=== PATIENT | male | born 1955 | race Caucasian/White ===

== ENCOUNTER 2017-10-06 18:39 | Emergency (ER) | payer MEDICARE, MEDICAID ==
[~2017-10-06] VITALS: Ht 172.7 cm; Wt 124.2 kg
[~2017-10-06 18:39] MED LIST: ASPI-611 PO; CARV-50 PO; CLIN-79 PO; DOCU-20 PO; GLIP10TA11 PO; HYDR-3965 PO; LACT10SO PO; LOSA50TA3 PO; PETR3.5O7 OP; SPIR25TA3 PO
[2017-10-06 19:38] LABS: BASOPHILS % (AUTO) 0.4 % (0-1); EOSINOPHILS # (AUTO) 0.2 X10'3 (0-0.9); EOSINOPHILS % (AUTO) 2.8 % (0-6); HEMOGLOBIN 14.2 g/dl (14.0-17.9); LYMPHOCYTES # (AUTO) 1.7 X10'3 (1.1-4.8); LYMPHOCYTES % (AUTO) 22.4 % (21-51); MEAN CORPUSCULAR HEMOGLOBIN 36.1 PG (27.0-31.0); MEAN CORPUSCULAR HGB CONC 35.5 % (33.0-36.5); MEAN CORPUSCULAR VOLUME 101.8 FL (78-98); MEAN PLATELET VOLUME 7.9 FL (7.4-10.4); MONOCYTES # (AUTO) 0.7 X10'3 (0-0.9); MONOCYTES % (AUTO) 9.5 % (2-12); NEUTROPHILS # (AUTO) 4.8 X10'3 (1.8-7.7); NEUTROPHILS % (AUTO) 64.9 % (42-75); PLATELET COUNT 88 X10'3 (140-440); RED BLOOD COUNT 3.93 X10'6 (4.70-6.10); RED CELL DISTRIBUTION WIDTH 14.4 % (11.5-14.5); WHITE BLOOD COUNT 7.4 X10'3 (4.5-11.0)
[2017-10-06 19:50] LABS: INR 1.1 INR; PARTIAL THROMBOPLASTIN TIME 24 SECONDS (22-32); PROTHROMBIN TIME 10.9 SECONDS (9.0-12.0)
[2017-10-06 20:01] LABS: ALANINE AMINOTRANSFERASE 58 U/L (12-78); ALBUMIN 2.8 G/DL (3.4-5.0); ALBUMIN/GLOBULIN RATIO 0.6 (1.1-1.5); ALKALINE PHOSPHATASE 212 IU/L (46-116); ANION GAP 8 (8-16); ASPARTATE AMINO TRANSFERASE 57 U/L (10-37); BILIRUBIN,TOTAL 2.2 MG/DL (0.1-1.0); BLOOD UREA NITROGEN 21 MG/DL (7-18); BUN/CREATININE RATIO 14.1 (5.4-32.0); CALCIUM 8.6 MG/DL (8.5-10.1); CHLORIDE 101 MMOL/L (99-107); CREATININE 1.49 MG/DL (0.60-1.10); GLUCOSE 145 MG/DL (70-104); LIPASE 159 U/L (73-393); POTASSIUM 4.7 MMOL/L (3.5-5.1); SODIUM 135 MMOL/L (135-145); TOTAL CARBON DIOXIDE 26.3 MMOL/L (24-32); TOTAL PROTEIN 7.2 G/DL (6.4-8.2); eGFR 48 ML/MIN
[2017-10-06] MEDS ORDERED: furosemide 10 MG/1 ML 10ml inj IV ONE (20:10)
[2017-10-06 20:45] VITALS: BP 135/80
== END 2017-10-06 20:48 | disposition home or self-care (01) ==
LOC: ER 18:39
DX: K74.60 Unspecified cirrhosis of liver (principal); I25.10 Atherosclerotic heart disease of native coronary artery without angina pectoris; I10 Essential (primary) hypertension; I25.2 Old myocardial infarction; E11.9 Type 2 diabetes mellitus without complications; Z95.1 Presence of aortocoronary bypass graft; Z95.0 Presence of cardiac pacemaker; Z88.8 Allergy status to other drugs, medicaments and biological substances; Z79.82 Long term (current) use of aspirin
CPT/HCPCS: 36415; 71045; 80053; 83690; 83880; 84484; 85025; 85610; 85730; 96374; 99285; J1940

== ENCOUNTER 2017-10-28 16:53 | Inpatient (IN) | payer MEDICARE, MEDICAID ==
[2017-10-27 14:40] VITALS: BP 149/83
[~2017-10-28] VITALS: Ht 172.7 cm; Wt 130.0 kg
[2017-10-28 17:47] LABS: BASOPHILS # (AUTO) 0.1 X10'3 (0-0.2); BASOPHILS % (AUTO) 0.7 % (0-1); EOSINOPHILS # (AUTO) 0.3 X10'3 (0-0.9); EOSINOPHILS % (AUTO) 3.3 % (0-6); HEMOGLOBIN 13.9 g/dl (14.0-17.9); LYMPHOCYTES # (AUTO) 1.4 X10'3 (1.1-4.8); LYMPHOCYTES % (AUTO) 17.7 % (21-51); MEAN CORPUSCULAR HEMOGLOBIN 35.8 PG (27.0-31.0); MEAN CORPUSCULAR HGB CONC 34.8 % (33.0-36.5); MEAN CORPUSCULAR VOLUME 102.9 FL (78-98); MEAN PLATELET VOLUME 7.4 FL (7.4-10.4); MONOCYTES # (AUTO) 0.9 X10'3 (0-0.9); MONOCYTES % (AUTO) 11.8 % (2-12); NEUTROPHILS # (AUTO) 5.3 X10'3 (1.8-7.7); NEUTROPHILS % (AUTO) 66.5 % (42-75); PLATELET COUNT 124 X10'3 (140-440); RED BLOOD COUNT 3.89 X10'6 (4.70-6.10); RED CELL DISTRIBUTION WIDTH 14.8 % (11.5-14.5)
[2017-10-28 18:11] LABS: ALANINE AMINOTRANSFERASE 40 U/L (12-78); ALBUMIN 2.7 G/DL (3.4-5.0); ALBUMIN/GLOBULIN RATIO 0.6 (1.1-1.5); ALKALINE PHOSPHATASE 169 IU/L (46-116); ANION GAP 7 (8-16); ASPARTATE AMINO TRANSFERASE 55 U/L (10-37); BILIRUBIN,TOTAL 2.2 MG/DL (0.1-1.0); BLOOD UREA NITROGEN 35 MG/DL (7-18); BUN/CREATININE RATIO 8.1 (5.4-32.0); CALCIUM 8.8 MG/DL (8.5-10.1); CHLORIDE 101 MMOL/L (99-107); CREATININE 4.34 MG/DL (0.60-1.10); GLUCOSE 101 MG/DL (70-104); POTASSIUM 4.9 MMOL/L (3.5-5.1); SODIUM 134 MMOL/L (135-145); TOTAL CARBON DIOXIDE 26.2 MMOL/L (24-32); TOTAL PROTEIN 7.1 G/DL (6.4-8.2); eGFR 14 ML/MIN
[2017-10-28] MEDS ORDERED: OXYC5CAP19 PO (19:08)
[2017-10-28] MEDS ORDERED: METF500T PO (19:08)
[2017-10-28] MEDS ORDERED: TAMS0.4C32 PO (19:08)
[2017-10-28] MEDS ORDERED: LORA10TA7 PO (19:08)
[2017-10-28] MEDS ORDERED: SIMV20TA5 PO (19:08)
[2017-10-28] MEDS ORDERED: SITA100T11 PO (19:08)
[2017-10-28] MEDS ORDERED: acetaminophen 325mg tablet PO PRN (21:50)
[2017-10-28] MEDS ORDERED: ondansetron/PF 4mg/2ml inj IV PRN (21:50)
[2017-10-28] MEDS ORDERED: dextrose 50%-water 50ml dispensing syringe IV PRN ×2 (22:05)
[2017-10-28] MEDS ORDERED: MESSAGE TO PHARMACY PO ONE (22:05)
[2017-10-28] MEDS ORDERED: glucagon, human recombinant 1mg kit SUBCUT PRN (22:05)
[2017-10-28] MEDS ORDERED: dextrose ORAL solution 15 GM/59 ML bottle PO PRN ×2 (22:05)
[2017-10-28] MEDS ORDERED: insulin Lispro (HumaLOG) vial - multi-dose SQ SCH (22:05)
[2017-10-28] MEDS ORDERED: non-formulary drug (Oxycodone HCl 1 CAP) PO SCH (22:15)
[2017-10-28 22:46] LABS: HEMOGLOBIN A1C 6.1 % (4.5-6.2)
[2017-10-28 23:15] VITALS: BP 168/99
[2017-10-29] VITALS (7 sets, daily range): BP systolic 109–141; BP diastolic 60–81
[2017-10-29] MEDS: lactulose 20gm/30ml cup PO SCH ×3 (00:02→15:41)
[2017-10-29 06:21] LABS: BASOPHILS # (AUTO) 0.1 X10'3 (0-0.2); BASOPHILS % (AUTO) 0.8 % (0-1); EOSINOPHILS # (AUTO) 0.2 X10'3 (0-0.9); HEMATOCRIT 34.3 % (42.0-52.0); HEMOGLOBIN 12.3 g/dl (14.0-17.9); LYMPHOCYTES # (AUTO) 1.5 X10'3 (1.1-4.8); LYMPHOCYTES % (AUTO) 20.3 % (21-51); MEAN CORPUSCULAR HEMOGLOBIN 35.9 PG (27.0-31.0); MEAN CORPUSCULAR HGB CONC 35.9 % (33.0-36.5); MEAN CORPUSCULAR VOLUME 100.1 FL (78-98); MEAN PLATELET VOLUME 8.4 FL (7.4-10.4); MONOCYTES # (AUTO) 0.9 X10'3 (0-0.9); MONOCYTES % (AUTO) 12.3 % (2-12); NEUTROPHILS # (AUTO) 4.7 X10'3 (1.8-7.7); NEUTROPHILS % (AUTO) 63.6 % (42-75); PLATELET COUNT 115 X10'3 (140-440); RED BLOOD COUNT 3.42 X10'6 (4.70-6.10); RED CELL DISTRIBUTION WIDTH 14.5 % (11.5-14.5); WHITE BLOOD COUNT 7.4 X10'3 (4.5-11.0)
[2017-10-29 06:44] LABS: ALANINE AMINOTRANSFERASE 35 U/L (12-78); ALBUMIN 2.4 G/DL (3.4-5.0); ALBUMIN/GLOBULIN RATIO 0.6 (1.1-1.5); ALKALINE PHOSPHATASE 147 IU/L (46-116); ANION GAP 10 (8-16); ASPARTATE AMINO TRANSFERASE 47 U/L (10-37); BILIRUBIN,TOTAL 1.9 MG/DL (0.1-1.0); BLOOD UREA NITROGEN 40 MG/DL (7-18); BUN/CREATININE RATIO 9.6 (5.4-32.0); CALCIUM 8.7 MG/DL (8.5-10.1); CHLORIDE 102 MMOL/L (99-107); CREATININE 4.18 MG/DL (0.60-1.10); GLUCOSE 116 MG/DL (70-104); POTASSIUM 5.1 MMOL/L (3.5-5.1); SODIUM 135 MMOL/L (135-145); TOTAL CARBON DIOXIDE 22.9 MMOL/L (24-32); TOTAL PROTEIN 6.5 G/DL (6.4-8.2); eGFR 15 ML/MIN
[2017-10-29] MEDS: carvedilol 6.25mg tablet PO SCH ×2 (09:12→20:25)
[2017-10-29] MEDS: docusate sod 100mg capsule PO SCH ×2 (09:12→20:25)
[2017-10-29] MEDS: oxyCODONE IR 5mg (immed. release) tablet PO PRN (15:27)
[2017-10-29] MEDS ORDERED: albumin (human) 25% 100 ML IV solution IV SCH (15:35)
[2017-10-29] MEDS ORDERED: furosemide 20 MG/2 ML vial IV SCH (16:00)
[2017-10-29] MEDS: albumin (human) 25% 100 ML IV solution IV SCH (20:00)
[2017-10-29] MEDS: furosemide 40mg/4ml inj IV SCH (20:00)
[2017-10-29] MEDS: heparin, porcine 5000 units/ml vial SQ SCH (20:25)
[2017-10-29] MEDS: tamsulosin 0.4mg capsule PO SCH (21:30)
[2017-10-30] VITALS (8 sets, daily range): BP systolic 116–146; BP diastolic 63–80
[2017-10-30] MEDS: furosemide 40mg/4ml inj IV SCH ×4 (00:04→20:19)
[2017-10-30] MEDS: albumin (human) 25% 100 ML IV solution IV SCH ×4 (00:06→20:19)
[2017-10-30 05:10] LABS: BASOPHILS % (AUTO) 0.4 % (0-1); EOSINOPHILS # (AUTO) 0.2 X10'3 (0-0.9); EOSINOPHILS % (AUTO) 3.6 % (0-6); HEMATOCRIT 30.2 % (42.0-52.0); HEMOGLOBIN 10.6 g/dl (14.0-17.9); LYMPHOCYTES # (AUTO) 1.3 X10'3 (1.1-4.8); LYMPHOCYTES % (AUTO) 26.8 % (21-51); MEAN CORPUSCULAR HEMOGLOBIN 35.8 PG (27.0-31.0); MEAN CORPUSCULAR HGB CONC 35.2 % (33.0-36.5); MEAN CORPUSCULAR VOLUME 101.8 FL (78-98); MEAN PLATELET VOLUME 7.7 FL (7.4-10.4); MONOCYTES # (AUTO) 0.7 X10'3 (0-0.9); MONOCYTES % (AUTO) 14.8 % (2-12); NEUTROPHILS # (AUTO) 2.7 X10'3 (1.8-7.7); NEUTROPHILS % (AUTO) 54.4 % (42-75); PLATELET COUNT 71 X10'3 (140-440); RED BLOOD COUNT 2.96 X10'6 (4.70-6.10); RED CELL DISTRIBUTION WIDTH 14.6 % (11.5-14.5); WHITE BLOOD COUNT 4.9 X10'3 (4.5-11.0)
[2017-10-30 05:30] LABS: ALANINE AMINOTRANSFERASE 28 U/L (12-78); ALBUMIN 2.7 G/DL (3.4-5.0); ALBUMIN/GLOBULIN RATIO 0.8 (1.1-1.5); ALKALINE PHOSPHATASE 115 IU/L (46-116); ANION GAP 8 (8-16); ASPARTATE AMINO TRANSFERASE 40 U/L (10-37); BLOOD UREA NITROGEN 37 MG/DL (7-18); BUN/CREATININE RATIO 10.9 (5.4-32.0); CHLORIDE 106 MMOL/L (99-107); GLUCOSE 97 MG/DL (70-104); POTASSIUM 5.2 MMOL/L (3.5-5.1); SODIUM 140 MMOL/L (135-145); TOTAL CARBON DIOXIDE 25.8 MMOL/L (24-32); TOTAL PROTEIN 5.9 G/DL (6.4-8.2); eGFR 18 ML/MIN
[2017-10-30] MEDS: heparin, porcine 5000 units/ml vial SQ SCH (08:00)
[2017-10-30] MEDS: lactulose 20gm/30ml cup PO SCH ×4 (08:46→23:10)
[2017-10-30] MEDS: docusate sod 100mg capsule PO SCH ×2 (08:46→20:18)
[2017-10-30] MEDS: carvedilol 6.25mg tablet PO SCH ×2 (08:47→20:18)
[2017-10-30] MEDS: metolazone 2.5mg tablet PO SCH (08:48)
[2017-10-30] MEDS: oxyCODONE IR 5mg (immed. release) tablet PO PRN (11:27)
[2017-10-30 12:39] LABS: CLARITY,URINE CLEAR (Clear); COLOR,URINE STRAW (Yellow); GLUCOSE, URINE NEGATIVE (Neg); KETONES,URINE NEGATIVE (Neg); LEUKOCYTE ESTERASE ,URINE NEGATIVE (Neg); NITRITES, URINE NEGATIVE (Neg); OCCULT BLOOD,URINE NEGATIVE (Neg); PH,URINE 5.5 (4.8-8.0); PROTEIN,URINE NEGATIVE (Neg); UA COLLECTION TYPE CLN CATCH MIDSTREAM; UROBILINOGEN,URINE 0.2 E.U/dL (0.2-1.0)
[2017-10-30 16:28] LABS: BF RBC COUNT 2750 /CU MM; BF WBC COUNT 105 /CU MM (0-1000); BFAPPEAR CLOUDY; BFCOLOR YELLOW; BFVOLUME 60 ML
[2017-10-30 16:37] LABS: GLUCOSE,BODY FLUID 134 MG/DL; LDH,BODY FLUID 50 U/L
[2017-10-30 16:50] LABS: BF MESOTHELIAL CELLS MODERATE; LYMPHOCYTES,BODY FLUID 62 %; MONOCYTES,BODY FLUID 26 %; NEUTROPHILS,BODY FLUID 12 %
[2017-10-30 17:12] LABS: TOTAL PROTEIN,BODY FLUID < 2.0 G/DL
[2017-10-30] MEDS: tamsulosin 0.4mg capsule PO SCH (20:18)
[2017-10-31 02:00] VITALS: BP 133/63
[2017-10-31] MEDS: albumin (human) 25% 100 ML IV solution IV SCH ×4 (02:04→19:49)
[2017-10-31] MEDS: furosemide 40mg/4ml inj IV SCH ×4 (02:05→19:50)
[2017-10-31 06:00] VITALS: BP 131/64
[2017-10-31 06:27] LABS: ALANINE AMINOTRANSFERASE 28 U/L (12-78); ALBUMIN 3.5 G/DL (3.4-5.0); ALBUMIN/GLOBULIN RATIO 1.4 (1.1-1.5); ALKALINE PHOSPHATASE 90 IU/L (46-116); ANION GAP 3 (8-16); ASPARTATE AMINO TRANSFERASE 35 U/L (10-37); BILIRUBIN,TOTAL 2.9 MG/DL (0.1-1.0); BLOOD UREA NITROGEN 36 MG/DL (7-18); BUN/CREATININE RATIO 13.3 (5.4-32.0); CALCIUM 9.3 MG/DL (8.5-10.1); CHLORIDE 100 MMOL/L (99-107); GLUCOSE 99 MG/DL (70-104); POTASSIUM 3.6 MMOL/L (3.5-5.1); SODIUM 131 MMOL/L (135-145); TOTAL CARBON DIOXIDE 28.3 MMOL/L (24-32); eGFR 24 ML/MIN
[2017-10-31 06:35] LABS: BASOPHILS % (AUTO) 0.1 % (0-1); EOSINOPHILS # (AUTO) 0.2 X10'3 (0-0.9); EOSINOPHILS % (AUTO) 3.7 % (0-6); HEMATOCRIT 29.1 % (42.0-52.0); HEMOGLOBIN 10.4 g/dl (14.0-17.9); LYMPHOCYTES # (AUTO) 1.2 X10'3 (1.1-4.8); LYMPHOCYTES % (AUTO) 27.8 % (21-51); MEAN CORPUSCULAR HEMOGLOBIN 36.2 PG (27.0-31.0); MEAN CORPUSCULAR HGB CONC 35.8 % (33.0-36.5); MEAN CORPUSCULAR VOLUME 100.9 FL (78-98); MEAN PLATELET VOLUME 7.8 FL (7.4-10.4); MONOCYTES # (AUTO) 0.6 X10'3 (0-0.9); MONOCYTES % (AUTO) 13.4 % (2-12); NEUTROPHILS # (AUTO) 2.3 X10'3 (1.8-7.7); PLATELET COUNT 65 X10'3 (140-440); RED BLOOD COUNT 2.88 X10'6 (4.70-6.10); RED CELL DISTRIBUTION WIDTH 14.1 % (11.5-14.5); WHITE BLOOD COUNT 4.3 X10'3 (4.5-11.0)
[2017-10-31 06:55] LABS: PLATELET ESTIMATE DECREASED
[2017-10-31 06:56] LABS: ANISOCYTOSIS 1+
[2017-10-31] MEDS: lactulose 20gm/30ml cup PO SCH ×3 (08:21→23:35)
[2017-10-31] MEDS: docusate sod 100mg capsule PO SCH ×2 (08:23→19:49)
[2017-10-31] MEDS: carvedilol 6.25mg tablet PO SCH ×2 (08:23→19:50)
[2017-10-31] MEDS: metolazone 2.5mg tablet PO SCH (08:23)
[2017-10-31 10:00] VITALS: BP 102/66
[2017-10-31 17:54] LABS: CLARITY,URINE CLEAR (Clear); COLOR,URINE YELLOW (Yellow); GLUCOSE, URINE NEGATIVE (Neg); KETONES,URINE NEGATIVE (Neg); LEUKOCYTE ESTERASE ,URINE NEGATIVE (Neg); NITRITES, URINE NEGATIVE (Neg); OCCULT BLOOD,URINE NEGATIVE (Neg); PROTEIN,URINE NEGATIVE (Neg)
[2017-10-31 17:58] LABS: SODIUM,URINE RANDOM 123 MEQ/L
[2017-10-31 18:00] VITALS: BP 146/68
[2017-10-31 18:00] LABS: TOTAL PROTEIN,URINE RANDOM < 6.0 MG/DL
[2017-10-31 18:01] LABS: UA COLLECTION TYPE CLN CATCH MIDSTREAM
[2017-10-31 18:17] LABS: UA EOSINOPHILS NO EOS /HPF
[2017-10-31] MEDS: tamsulosin 0.4mg capsule PO SCH (21:21)
[2017-10-31 22:00] VITALS: BP 117/55
[2017-11-01 02:00] VITALS: BP 118/61
[2017-11-01] MEDS: furosemide 40mg/4ml inj IV SCH ×2 (02:04→08:33)
[2017-11-01] MEDS: albumin (human) 25% 100 ML IV solution IV SCH ×2 (02:04→08:32)
[2017-11-01 06:00] VITALS: BP 119/58
[2017-11-01 06:24] LABS: BASOPHILS % (AUTO) 0.3 % (0-1); EOSINOPHILS # (AUTO) 0.2 X10'3 (0-0.9); EOSINOPHILS % (AUTO) 3.9 % (0-6); HEMATOCRIT 29.7 % (42.0-52.0); HEMOGLOBIN 10.6 g/dl (14.0-17.9); LYMPHOCYTES # (AUTO) 1.3 X10'3 (1.1-4.8); LYMPHOCYTES % (AUTO) 28.7 % (21-51); MEAN CORPUSCULAR HEMOGLOBIN 35.9 PG (27.0-31.0); MEAN CORPUSCULAR HGB CONC 35.7 % (33.0-36.5); MEAN CORPUSCULAR VOLUME 100.6 FL (78-98); MEAN PLATELET VOLUME 7.7 FL (7.4-10.4); MONOCYTES # (AUTO) 0.6 X10'3 (0-0.9); MONOCYTES % (AUTO) 13.2 % (2-12); NEUTROPHILS # (AUTO) 2.4 X10'3 (1.8-7.7); NEUTROPHILS % (AUTO) 53.9 % (42-75); PLATELET COUNT 69 X10'3 (140-440); RED BLOOD COUNT 2.96 X10'6 (4.70-6.10); WHITE BLOOD COUNT 4.5 X10'3 (4.5-11.0)
[2017-11-01 06:41] LABS: ALANINE AMINOTRANSFERASE 28 U/L (12-78); ALBUMIN 4.2 G/DL (3.4-5.0); ALBUMIN/GLOBULIN RATIO 1.9 (1.1-1.5); ALKALINE PHOSPHATASE 82 IU/L (46-116); ANION GAP 10 (8-16); ASPARTATE AMINO TRANSFERASE 32 U/L (10-37); BILIRUBIN,TOTAL 3.2 MG/DL (0.1-1.0); BLOOD UREA NITROGEN 37 MG/DL (7-18); BUN/CREATININE RATIO 14.1 (5.4-32.0); CALCIUM 10.1 MG/DL (8.5-10.1); CHLORIDE 100 MMOL/L (99-107); CREATININE 2.62 MG/DL (0.60-1.10); GLUCOSE 104 MG/DL (70-104); POTASSIUM 3.6 MMOL/L (3.5-5.1); SODIUM 143 MMOL/L (135-145); TOTAL CARBON DIOXIDE 33.4 MMOL/L (24-32); TOTAL PROTEIN 6.4 G/DL (6.4-8.2); eGFR 25 ML/MIN
[2017-11-01] MEDS: lactulose 20gm/30ml cup PO SCH (08:00)
[2017-11-01] MEDS: carvedilol 6.25mg tablet PO SCH (08:33)
[2017-11-01] MEDS: metolazone 2.5mg tablet PO SCH (08:33)
[2017-11-01] MEDS: docusate sod 100mg capsule PO SCH (08:33)
[2017-11-01 10:00] VITALS: BP 106/49
[2017-11-01] MEDS ORDERED: ZAR2.5T PO (13:20)
[2017-11-01] MEDS ORDERED: FURO40TA4 PO (13:20)
== END 2017-11-01 14:20 | disposition home or self-care (01) | DRG 433 ==
LOC: ER 16:54 → ED HOLD 21:49 → EDBEDREQ 22:06 → PCU 3S 23:43 → ORTHO 4S 10-30 11:05
PROVIDERS: ADMIT Internal Medicine; ATTEND Family Medicine
PROC: 0W9G3ZX Drainage of Peritoneal Cavity, Percutaneous Approach, Diagnostic (ICD-10-PCS; principal; 2017-10-30)
DX: K74.60 Unspecified cirrhosis of liver (principal); N17.9 Acute kidney failure, unspecified; D69.6 Thrombocytopenia, unspecified; E44.0 Moderate protein-calorie malnutrition; E11.22 Type 2 diabetes mellitus with diabetic chronic kidney disease; E87.1 Hypo-osmolality and hyponatremia; K76.6 Portal hypertension; Z68.41 Body mass index [BMI] 40.0-44.9, adult; R18.8 Other ascites; R74.0 Nonspecific elevation of levels of transaminase and lactic acid dehydrogenase [LDH]; B19.20 Unspecified viral hepatitis C without hepatic coma; D63.8 Anemia in other chronic diseases classified elsewhere; N18.9 Chronic kidney disease, unspecified; E66.9 Obesity, unspecified; I12.9 Hypertensive chronic kidney disease with stage 1 through stage 4 chronic kidney disease, or unspecified chronic kidney disease; I25.10 Atherosclerotic heart disease of native coronary artery without angina pectoris; K76.0 Fatty (change of) liver, not elsewhere classified; Z95.1 Presence of aortocoronary bypass graft; Z95.0 Presence of cardiac pacemaker; Z90.5 Acquired absence of kidney; I25.2 Old myocardial infarction; Z88.8 Allergy status to other drugs, medicaments and biological substances; Z79.899 Other long term (current) drug therapy; Z79.82 Long term (current) use of aspirin; Z85.528 Personal history of other malignant neoplasm of kidney
CPT/HCPCS: 36415; 49083; 71045; 74176; 76775; 80053; 81003; 82570; 82945; 82948; 83036; 83615; 83735; 83880; 84156; 84157; 84300; 85025; 87070; 87207; 89051; 93005; 93306; 99285; J1644; J1940; P9047

== ENCOUNTER → 2017-12-11 | Day surgery (SDC) | payer MEDICARE, MEDICAID ==
[~2017-12-11] VITALS: Ht 172.7 cm; Wt 115.8 kg
[2017-12-11] VITALS (7 sets, daily range): BP systolic 99–112; BP diastolic 47–70
[~2017-12-11] MED LIST changes: -ASPI-611 PO; -CLIN-79 PO; +FURO40TA4 PO; -HYDR-3965 PO; +LIDOcaine 1% 30ml preserv. free vial SQ ONE; +LORA10TA7 PO; -LOSA50TA3 PO; +OXYC5CAP19 PO; -PETR3.5O7 OP; +SIMV20TA5 PO; +SITA100T11 PO; -SPIR25TA3 PO; +TAMS0.4C32 PO; +ZAR2.5T PO; +albumin (human) 25% 100 ML IV solution IV PRN; +normal saline 1000ml 1,000 ML IV PRN
== END | disposition home or self-care (01) ==
LOC: SSTAY O 07:03
PROVIDERS: ATTEND Radiology Diagnostic Radiology
DX: R18.8 Other ascites (principal); I12.9 Hypertensive chronic kidney disease with stage 1 through stage 4 chronic kidney disease, or unspecified chronic kidney disease; N18.4 Chronic kidney disease, stage 4 (severe); E11.22 Type 2 diabetes mellitus with diabetic chronic kidney disease; I25.2 Old myocardial infarction; I25.10 Atherosclerotic heart disease of native coronary artery without angina pectoris; E78.5 Hyperlipidemia, unspecified; F32.9 Major depressive disorder, single episode, unspecified; B15.9 Hepatitis A without hepatic coma; E66.9 Obesity, unspecified; Z90.5 Acquired absence of kidney; Z95.1 Presence of aortocoronary bypass graft; Z86.74 Personal history of sudden cardiac arrest; Z85.528 Personal history of other malignant neoplasm of kidney; Z68.38 Body mass index [BMI] 38.0-38.9, adult; Z98.52 Vasectomy status; Z79.82 Long term (current) use of aspirin; Z79.84 Long term (current) use of oral hypoglycemic drugs; Z79.891 Long term (current) use of opiate analgesic; Z79.899 Other long term (current) drug therapy; Z88.8 Allergy status to other drugs, medicaments and biological substances
CPT/HCPCS: 49083; A6257; J3490; J7030; P9047

== ENCOUNTER 2018-02-25 07:58 | Day surgery (SDC) | payer MEDICARE, MEDICAID ==
[2018-02-25] VITALS (10 sets, daily range): BP systolic 99–121; BP diastolic 60–76
[~2018-02-25] VITALS: Ht 172.7 cm; Wt 109.7 kg
[~2018-02-25 07:58] MED LIST changes: -LIDOcaine 1% 30ml preserv. free vial SQ ONE; +POTA10CA44 PO; +SPIR25TA5 PO; -albumin (human) 25% 100 ML IV solution IV PRN; -normal saline 1000ml 1,000 ML IV PRN
[2018-02-25] MEDS ORDERED: LIDOcaine 1%/PF 5ML 10 MG/ML VIAL SQ ONE (08:00)
[2018-02-25] MEDS ORDERED: normal saline 1000ml 1,000 ML IV PRN (08:20)
[2018-02-25] MEDS: albumin (human) 25% 100 ML IV solution IV PRN ×2 (10:11→10:46)
== END 2018-02-25 11:30 | disposition home or self-care (01) ==
LOC: SSTAY O 07:58
PROVIDERS: ATTEND Radiology Vascular & Interventional Radiology
DX: R18.8 Other ascites (principal); E11.22 Type 2 diabetes mellitus with diabetic chronic kidney disease; I12.9 Hypertensive chronic kidney disease with stage 1 through stage 4 chronic kidney disease, or unspecified chronic kidney disease; N18.4 Chronic kidney disease, stage 4 (severe); E78.5 Hyperlipidemia, unspecified; I25.810 Atherosclerosis of coronary artery bypass graft(s) without angina pectoris; E66.9 Obesity, unspecified; F32.9 Major depressive disorder, single episode, unspecified; Z86.74 Personal history of sudden cardiac arrest; Z98.52 Vasectomy status; Z86.19 Personal history of other infectious and parasitic diseases; Z95.0 Presence of cardiac pacemaker; Z79.82 Long term (current) use of aspirin; Z85.528 Personal history of other malignant neoplasm of kidney; Z79.84 Long term (current) use of oral hypoglycemic drugs; Z79.891 Long term (current) use of opiate analgesic; Z90.5 Acquired absence of kidney; Z95.1 Presence of aortocoronary bypass graft; Z68.36 Body mass index [BMI] 36.0-36.9, adult; Z88.8 Allergy status to other drugs, medicaments and biological substances; Z79.899 Other long term (current) drug therapy; Z98.890 Other specified postprocedural states
CPT/HCPCS: 49083; 82948; A6257; J2001; J7030; P9047

== ENCOUNTER 2018-03-09 06:50 | Day surgery (SDC) | payer MEDICARE, MEDICAID ==
[2018-03-09] VITALS (9 sets, daily range): BP systolic 95–123; BP diastolic 50–78
[~2018-03-09] VITALS: Ht 172.7 cm; Wt 112.9 kg
[~2018-03-09 06:50] MED LIST changes: -LACT10SO PO; +LIDOcaine 1%/PF 5ML 10 MG/ML VIAL SQ ONE
[2018-03-09] MEDS ORDERED: normal saline 1000ml 1,000 ML IV PRN (07:35)
[2018-03-09] MEDS: albumin (human) 25% 100 ML IV solution IV PRN ×2 (08:47→09:11)
== END 2018-03-09 09:45 | disposition home or self-care (01) ==
LOC: SSTAY O 06:50
PROVIDERS: ATTEND Radiology Vascular & Interventional Radiology
DX: K70.31 Alcoholic cirrhosis of liver with ascites (principal); K75.81 Nonalcoholic steatohepatitis (NASH); I25.10 Atherosclerotic heart disease of native coronary artery without angina pectoris; E78.5 Hyperlipidemia, unspecified; I10 Essential (primary) hypertension; E11.9 Type 2 diabetes mellitus without complications; I25.2 Old myocardial infarction; Z79.82 Long term (current) use of aspirin; Z79.84 Long term (current) use of oral hypoglycemic drugs; Z79.899 Other long term (current) drug therapy; Z88.8 Allergy status to other drugs, medicaments and biological substances; Z95.5 Presence of coronary angioplasty implant and graft; Z98.52 Vasectomy status; Z90.5 Acquired absence of kidney; Z85.53 Personal history of malignant neoplasm of renal pelvis; Z98.890 Other specified postprocedural states
CPT/HCPCS: 49083; A6257; J2001; J7030; P9047

== ENCOUNTER 2018-03-18 07:45 | Day surgery (SDC) | payer MEDICARE, MEDICAID ==
[2018-03-18] VITALS (7 sets, daily range): BP systolic 87–104; BP diastolic 45–65
[~2018-03-18] VITALS: Ht 172.7 cm; Wt 111.7 kg
[2018-03-18] MEDS ORDERED: normal saline 1000ml 1,000 ML IV PRN (08:05)
[2018-03-18] MEDS: albumin (human) 25% 100 ML IV solution IV PRN ×2 (08:33→08:57)
== END 2018-03-18 09:45 | disposition home or self-care (01) ==
LOC: SSTAY O 07:45
PROVIDERS: ATTEND Radiology Diagnostic Radiology
DX: K70.31 Alcoholic cirrhosis of liver with ascites (principal); K75.81 Nonalcoholic steatohepatitis (NASH); I25.2 Old myocardial infarction; I10 Essential (primary) hypertension; E11.9 Type 2 diabetes mellitus without complications; E66.9 Obesity, unspecified; F32.9 Major depressive disorder, single episode, unspecified; Z95.0 Presence of cardiac pacemaker; Z98.52 Vasectomy status; Z87.39 Personal history of other diseases of the musculoskeletal system and connective tissue; Z85.528 Personal history of other malignant neoplasm of kidney; Z79.899 Other long term (current) drug therapy; Z88.8 Allergy status to other drugs, medicaments and biological substances; Z79.82 Long term (current) use of aspirin; Z95.5 Presence of coronary angioplasty implant and graft; Z68.36 Body mass index [BMI] 36.0-36.9, adult; Z79.891 Long term (current) use of opiate analgesic
CPT/HCPCS: 49083; A6257; J2001; J7030; P9047

== ENCOUNTER 2018-04-23 07:30 | Day surgery (SDC) | payer MEDICARE, MEDICAID ==
[2018-04-23] VITALS (9 sets, daily range): BP systolic 95–137; BP diastolic 57–74
[~2018-04-23] VITALS: Ht 172.7 cm; Wt 108.1 kg
[2018-04-23] MEDS ORDERED: normal saline 1000ml 1,000 ML IV PRN (07:55)
[2018-04-23] MEDS: albumin (human) 25% 100 ML IV solution IV PRN ×2 (09:08→09:37)
== END 2018-04-23 10:35 | disposition home or self-care (01) ==
LOC: SSTAY O 07:30
PROVIDERS: ATTEND Radiology Diagnostic Radiology
DX: R18.8 Other ascites (principal); K74.69 Other cirrhosis of liver; E11.22 Type 2 diabetes mellitus with diabetic chronic kidney disease; I12.9 Hypertensive chronic kidney disease with stage 1 through stage 4 chronic kidney disease, or unspecified chronic kidney disease; N18.4 Chronic kidney disease, stage 4 (severe); E78.5 Hyperlipidemia, unspecified; I25.810 Atherosclerosis of coronary artery bypass graft(s) without angina pectoris; F32.9 Major depressive disorder, single episode, unspecified; E66.9 Obesity, unspecified; I25.2 Old myocardial infarction; Z86.2 Personal history of diseases of the blood and blood-forming organs and certain disorders involving the immune mechanism; Z90.5 Acquired absence of kidney; Z95.1 Presence of aortocoronary bypass graft; Z98.52 Vasectomy status; Z86.19 Personal history of other infectious and parasitic diseases; Z87.39 Personal history of other diseases of the musculoskeletal system and connective tissue; Z85.528 Personal history of other malignant neoplasm of kidney; Z86.74 Personal history of sudden cardiac arrest; Z95.0 Presence of cardiac pacemaker; Z87.01 Personal history of pneumonia (recurrent); Z68.36 Body mass index [BMI] 36.0-36.9, adult; Z79.82 Long term (current) use of aspirin; Z79.84 Long term (current) use of oral hypoglycemic drugs; Z79.891 Long term (current) use of opiate analgesic; Z98.890 Other specified postprocedural states; Z79.899 Other long term (current) drug therapy; Z82.49 Family history of ischemic heart disease and other diseases of the circulatory system; Z83.3 Family history of diabetes mellitus
CPT/HCPCS: 49083; A6257; J2001; J7030; P9047

== ENCOUNTER 2018-05-05 07:39 | Day surgery (SDC) | payer MEDICARE, MEDICAID ==
[~2018-05-05] VITALS: Ht 172.7 cm; Wt 105.8 kg
[2018-05-05] MEDS ORDERED: normal saline 1000ml 1,000 ML IV PRN (08:00)
[2018-05-05] MEDS ORDERED: albumin (human) 25% 100 ML IV solution IV PRN (08:00)
[2018-05-05 08:03] VITALS: BP 105/63
[2018-05-05 08:44] VITALS: BP 113/61
[2018-05-05 09:00] VITALS: BP 117/64
[2018-05-05 09:15] VITALS: BP 113/54
[2018-05-05 09:30] VITALS: BP 120/68
[2018-05-05 09:45] VITALS: BP 118/64
== END 2018-05-05 09:45 | disposition home or self-care (01) ==
LOC: SSTAY O 07:39
PROVIDERS: ATTEND Radiology Vascular & Interventional Radiology
DX: R18.8 Other ascites (principal); K75.81 Nonalcoholic steatohepatitis (NASH); E78.5 Hyperlipidemia, unspecified; I25.810 Atherosclerosis of coronary artery bypass graft(s) without angina pectoris; I10 Essential (primary) hypertension; E11.9 Type 2 diabetes mellitus without complications; F32.9 Major depressive disorder, single episode, unspecified; Z85.528 Personal history of other malignant neoplasm of kidney; Z79.82 Long term (current) use of aspirin; Z79.84 Long term (current) use of oral hypoglycemic drugs; Z79.891 Long term (current) use of opiate analgesic; Z90.5 Acquired absence of kidney; Z95.1 Presence of aortocoronary bypass graft; Z98.52 Vasectomy status; Z86.19 Personal history of other infectious and parasitic diseases; Z86.74 Personal history of sudden cardiac arrest; Z95.0 Presence of cardiac pacemaker; Z87.01 Personal history of pneumonia (recurrent); Z98.890 Other specified postprocedural states; Z79.899 Other long term (current) drug therapy; Z88.8 Allergy status to other drugs, medicaments and biological substances; Z82.49 Family history of ischemic heart disease and other diseases of the circulatory system; Z83.3 Family history of diabetes mellitus
CPT/HCPCS: 49083; A6257; J2001; J7030; P9047

== ENCOUNTER 2018-05-22 07:32 | Day surgery (SDC) | payer MEDICARE, MEDICAID ==
[2018-05-22] VITALS (9 sets, daily range): BP systolic 94–114; BP diastolic 58–70
[~2018-05-22] VITALS: Ht 172.7 cm; Wt 109.9 kg
[~2018-05-22 07:32] MED LIST changes: -LIDOcaine 1%/PF 5ML 10 MG/ML VIAL SQ ONE
[2018-05-22] MEDS ORDERED: albumin (human) 25% 100 ML IV solution IV PRN (08:00)
[2018-05-22] MEDS ORDERED: normal saline 1000ml 1,000 ML IV PRN (08:00)
[2018-05-22] MEDS ORDERED: LIDOcaine 1% (10mg/ml)w/preservative injection 20ml MDV IJ ONE (08:05)
== END 2018-05-22 10:30 | disposition home or self-care (01) ==
LOC: SSTAY O 07:32
PROVIDERS: ATTEND Radiology Diagnostic Radiology
DX: R18.8 Other ascites (principal); K75.81 Nonalcoholic steatohepatitis (NASH); K74.60 Unspecified cirrhosis of liver; E11.9 Type 2 diabetes mellitus without complications; E78.5 Hyperlipidemia, unspecified; I25.810 Atherosclerosis of coronary artery bypass graft(s) without angina pectoris; I10 Essential (primary) hypertension; Z86.74 Personal history of sudden cardiac arrest; Z95.0 Presence of cardiac pacemaker; Z87.01 Personal history of pneumonia (recurrent); Z98.52 Vasectomy status; Z86.19 Personal history of other infectious and parasitic diseases; Z85.528 Personal history of other malignant neoplasm of kidney; Z79.82 Long term (current) use of aspirin; Z79.84 Long term (current) use of oral hypoglycemic drugs; Z79.891 Long term (current) use of opiate analgesic; Z90.5 Acquired absence of kidney; Z98.890 Other specified postprocedural states; Z95.1 Presence of aortocoronary bypass graft; Z79.899 Other long term (current) drug therapy; Z88.8 Allergy status to other drugs, medicaments and biological substances; Z82.49 Family history of ischemic heart disease and other diseases of the circulatory system; Z83.3 Family history of diabetes mellitus
CPT/HCPCS: 49083; J2001; J7030; P9047

== ENCOUNTER 2018-06-05 06:52 | Day surgery (SDC) | payer MEDICARE, MEDICAID ==
[~2018-06-05] VITALS: Ht 170.2 cm; Wt 111.2 kg
[2018-06-05] VITALS (9 sets, daily range): BP systolic 104–120; BP diastolic 56–73
[~2018-06-05 06:52] MED LIST changes: +LIDOcaine 1% (10mg/ml)w/preservative injection 20ml MDV SQ ONE
[2018-06-05] MEDS ORDERED: normal saline 1000ml 1,000 ML IV PRN (07:15)
[2018-06-05] MEDS ORDERED: albumin (human) 25% 100 ML IV solution IV PRN (07:15)
== END 2018-06-05 09:55 | disposition home or self-care (01) ==
LOC: SSTAY O 06:52
PROVIDERS: ATTEND Radiology Vascular & Interventional Radiology
DX: R18.8 Other ascites (principal); K74.60 Unspecified cirrhosis of liver; K75.81 Nonalcoholic steatohepatitis (NASH); I25.10 Atherosclerotic heart disease of native coronary artery without angina pectoris; E11.9 Type 2 diabetes mellitus without complications; E78.5 Hyperlipidemia, unspecified; Z85.528 Personal history of other malignant neoplasm of kidney; Z88.8 Allergy status to other drugs, medicaments and biological substances; Z79.899 Other long term (current) drug therapy; Z98.890 Other specified postprocedural states
CPT/HCPCS: 49083; J2001; J7030; P9047

== ENCOUNTER 2018-06-23 07:37 | Day surgery (SDC) | payer MEDICARE, MEDICAID ==
[2018-06-23] VITALS (11 sets, daily range): BP systolic 100–133; BP diastolic 53–81
[~2018-06-23] VITALS: Ht 152.4 cm; Wt 113.4 kg
[~2018-06-23 07:37] MED LIST changes: -LIDOcaine 1% (10mg/ml)w/preservative injection 20ml MDV SQ ONE
[2018-06-23] MEDS ORDERED: normal saline 1000ml 1,000 ML IV PRN (08:00)
[2018-06-23] MEDS ORDERED: LINA5TAB4 PO (08:06)
[2018-06-23] MEDS ORDERED: LIDOcaine 1% 30ml preserv. free vial SQ ONE (09:00)
[2018-06-23] MEDS: albumin (human) 25% 100 ML IV solution IV PRN ×2 (09:08→09:42)
== END 2018-06-23 10:30 | disposition home or self-care (01) ==
LOC: SSTAY O 07:37
PROVIDERS: ATTEND Radiology Diagnostic Radiology
DX: R18.8 Other ascites (principal); K75.81 Nonalcoholic steatohepatitis (NASH); K74.60 Unspecified cirrhosis of liver; E78.5 Hyperlipidemia, unspecified; E11.9 Type 2 diabetes mellitus without complications; I25.810 Atherosclerosis of coronary artery bypass graft(s) without angina pectoris; I10 Essential (primary) hypertension; F32.9 Major depressive disorder, single episode, unspecified; Z86.74 Personal history of sudden cardiac arrest; Z95.0 Presence of cardiac pacemaker; Z87.01 Personal history of pneumonia (recurrent); Z98.52 Vasectomy status; Z85.528 Personal history of other malignant neoplasm of kidney; Z79.82 Long term (current) use of aspirin; Z90.5 Acquired absence of kidney; Z79.84 Long term (current) use of oral hypoglycemic drugs; Z79.891 Long term (current) use of opiate analgesic; Z95.1 Presence of aortocoronary bypass graft; Z98.890 Other specified postprocedural states; Z88.8 Allergy status to other drugs, medicaments and biological substances; Z79.899 Other long term (current) drug therapy; Z86.19 Personal history of other infectious and parasitic diseases; Z82.49 Family history of ischemic heart disease and other diseases of the circulatory system; Z83.3 Family history of diabetes mellitus
CPT/HCPCS: 49083; J3490; J7030; P9047

== ENCOUNTER 2018-07-03 06:37 | Day surgery (SDC) | payer MEDICARE, MEDICAID ==
[~2018-07-03] VITALS: Ht 172.7 cm; Wt 114.3 kg
[2018-07-03] VITALS (7 sets, daily range): BP systolic 97–123; BP diastolic 59–72
[~2018-07-03 06:37] MED LIST changes: -GLIP10TA11 PO; +LIDOcaine 1% 30ml preserv. free vial SQ STA; +LINA5TAB4 PO; -SIMV20TA5 PO; -SITA100T11 PO
[2018-07-03] MEDS ORDERED: normal saline 1000ml 1,000 ML IV PRN (06:55)
[2018-07-03] MEDS: albumin (human) 25% 100 ML IV solution IV PRN ×2 (08:54→09:31)
== END 2018-07-03 10:00 | disposition home or self-care (01) ==
LOC: SSTAY O 06:37
PROVIDERS: ATTEND Radiology Diagnostic Radiology
DX: R18.8 Other ascites (principal); K74.60 Unspecified cirrhosis of liver; K75.81 Nonalcoholic steatohepatitis (NASH); E78.5 Hyperlipidemia, unspecified; E11.9 Type 2 diabetes mellitus without complications; I25.10 Atherosclerotic heart disease of native coronary artery without angina pectoris; Z85.528 Personal history of other malignant neoplasm of kidney; Z79.899 Other long term (current) drug therapy; Z88.8 Allergy status to other drugs, medicaments and biological substances; Z95.1 Presence of aortocoronary bypass graft; Z90.5 Acquired absence of kidney
CPT/HCPCS: 49083; J3490; J7030; P9047

== ENCOUNTER 2018-08-07 07:53 | Day surgery (SDC) | payer MEDICARE, MEDICAID ==
[2018-08-07] VITALS (9 sets, daily range): BP systolic 81–98; BP diastolic 54–69
[~2018-08-07] VITALS: Ht 172.7 cm; Wt 104.4 kg
[2018-08-07] MEDS ORDERED: albumin (human) 25% 100 ML IV solution IV PRN (08:15)
[2018-08-07] MEDS ORDERED: normal saline 1000ml 1,000 ML IV PRN (08:15)
[2018-08-07] MEDS ORDERED: ONDA4TAB6 PO (11:24)
== END 2018-08-07 10:21 | disposition home or self-care (01) ==
LOC: SSTAY O 07:53
PROVIDERS: ATTEND Radiology Diagnostic Radiology
DX: R18.8 Other ascites (principal); K75.81 Nonalcoholic steatohepatitis (NASH); K74.60 Unspecified cirrhosis of liver; E11.9 Type 2 diabetes mellitus without complications; E78.5 Hyperlipidemia, unspecified; I25.810 Atherosclerosis of coronary artery bypass graft(s) without angina pectoris; I10 Essential (primary) hypertension; F32.9 Major depressive disorder, single episode, unspecified; Z98.52 Vasectomy status; Z87.2 Personal history of diseases of the skin and subcutaneous tissue; Z86.19 Personal history of other infectious and parasitic diseases; Z86.74 Personal history of sudden cardiac arrest; Z95.0 Presence of cardiac pacemaker; Z87.09 Personal history of other diseases of the respiratory system; Z90.5 Acquired absence of kidney; Z79.4 Long term (current) use of insulin; Z95.1 Presence of aortocoronary bypass graft; Z85.528 Personal history of other malignant neoplasm of kidney; Z79.82 Long term (current) use of aspirin; Z79.84 Long term (current) use of oral hypoglycemic drugs; Z79.891 Long term (current) use of opiate analgesic; Z88.8 Allergy status to other drugs, medicaments and biological substances; Z79.899 Other long term (current) drug therapy; Z98.890 Other specified postprocedural states; Z82.49 Family history of ischemic heart disease and other diseases of the circulatory system; Z83.3 Family history of diabetes mellitus
CPT/HCPCS: 49083; J3490; J7030; P9047

== ENCOUNTER 2018-08-10 14:26 | Inpatient (IN) | payer MEDICARE, MEDICAID ==
[~2018-08-10] VITALS: Ht 172.7 cm; Wt 100.8 kg
[~2018-08-10 14:26] MED LIST changes: -LIDOcaine 1% 30ml preserv. free vial SQ STA; +ONDA4TAB6 PO
[2018-08-10] MEDS ORDERED: proCHLORperazine 10 MG/2 ml inj IV ONE (15:40)
[2018-08-10] MEDS ORDERED: normal saline 1000ML IV soln IVB ONE (15:40)
[2018-08-10] MEDS ORDERED: morphine 4 MG/ML inj SYRINge IV ONE (15:40)
--- NOTE | 2018-08-10 16:10 | NUR ---
MORPHINE NOT GIVEN AT THIS TIME DUE TO LOW BP, PT IS RECEIVING 500ML NS BOLUS, WILL REEVALUATE AFTER BOLUS INFUSES
--- NOTE | 2018-08-10 16:16 | NUR ---
Dr Angeles and Karely RN aware of low BP, pt is GCS 15, alert and oriented x3, resp even and unlabored
[2018-08-10 16:28] LABS: AMMONIA < 10 UMOL/L (11-32)
[2018-08-10 16:30] LABS: ALANINE AMINOTRANSFERASE 22 U/L (12-78); ALBUMIN 2.2 G/DL (3.4-5.0); ALBUMIN/GLOBULIN RATIO 0.5 (1.1-1.5); ALKALINE PHOSPHATASE 114 IU/L (46-116); ANION GAP 10 (8-16); ASPARTATE AMINO TRANSFERASE 27 U/L (10-37); BASOPHILS % (AUTO) 0.1 % (0-1); BILIRUBIN,TOTAL 9.1 MG/DL (0.1-1.0); BLOOD UREA NITROGEN 61 MG/DL (7-18); BUN/CREATININE RATIO 19.1 (5.4-32.0); CHLORIDE 86 MMOL/L (99-107); EOSINOPHILS # (AUTO) 0.2 X10'3 (0-0.9); EOSINOPHILS % (AUTO) 0.8 % (0-6); GLUCOSE 203 MG/DL (70-104); HEMOGLOBIN 15.1 g/dl (14.0-17.9); LIPASE 103 U/L (73-393); LYMPHOCYTES # (AUTO) 0.4 X10'3 (1.1-4.8); LYMPHOCYTES % (AUTO) 2.4 % (21-51); MEAN CORPUSCULAR HEMOGLOBIN 34.6 PG (27.0-31.0); MEAN CORPUSCULAR HGB CONC 33.7 % (33.0-36.5); MEAN CORPUSCULAR VOLUME 102.7 FL (78-98); MONOCYTES # (AUTO) 1.5 X10'3 (0-0.9); MONOCYTES % (AUTO) 7.9 % (2-12); NEUTROPHILS # (AUTO) 16.4 X10'3 (1.8-7.7); NEUTROPHILS % (AUTO) 88.8 % (42-75); PLATELET COUNT 103 X10'3 (140-440); POTASSIUM 4.8 MMOL/L (3.5-5.1); RED BLOOD COUNT 4.38 X10'6 (4.70-6.10); RED CELL DISTRIBUTION WIDTH 14.8 % (11.5-14.5); SODIUM 123 MMOL/L (135-145); TOTAL CARBON DIOXIDE 27.4 MMOL/L (24-32); TOTAL PROTEIN 6.9 G/DL (6.4-8.2); WHITE BLOOD COUNT 18.5 X10'3 (4.5-11.0); eGFR 20 ML/MIN
[2018-08-10 16:44] LABS: INR 1.2 INR; PROTHROMBIN TIME 12.5 SECONDS (9.0-12.0)
[2018-08-10 16:51] LABS: LACTIC SEPSIS 6.2 MMOL/L (0.4-2.0)
[2018-08-10] MEDS ORDERED: piperacillin/tazo 3.375gm/50ml 50 ML IV ONE (17:00)
[2018-08-10] MEDS ORDERED: normal saline 1000ML IV soln IV ONE (17:00)
[2018-08-10] MEDS ORDERED: vancomycin/NS 1 GM ADD-VANTAGE 250 ML IV ONE (17:15)
[2018-08-10] MEDS ORDERED: albumin (human) 25% 100ml IV 100 ML IV ONE (17:15)
--- NOTE | 2018-08-10 19:10 | NUR ---
RELIEVING RAFAELA RN FOR LUNCH, PT IS RESTING QUIETLY ON GURNEY, RESP EVEN AND UNLABORED,
[2018-08-10 19:17] LABS: GLUCOSE, URINE NEGATIVE (Neg); KETONES,URINE TRACE mg/dl (Neg); LEUKOCYTE ESTERASE ,URINE NEGATIVE (Neg); OCCULT BLOOD,URINE SMALL (Neg); PROTEIN,URINE TRACE mg/dl (Neg)
[2018-08-10 19:26] LABS: CLARITY,URINE TURBID (Clear); COLOR,URINE DARK YELLOW (Yellow); UA COLLECTION TYPE STRAIGHT CATH
[2018-08-10 19:28] LABS: NITRITES, URINE NEGATIVE (Neg)
[2018-08-10 19:31] LABS: WBC,URINE 0-4 /HPF (0-4)
[2018-08-10 19:32] LABS: BACTERIA,URINE FEW /HPF (Neg); SQUAMOUS EPITHELIAL CELL,UR FEW /LPF (FEW); TRANSITIONAL EPI CELLS,URINE FEW /HPF
[2018-08-10 19:33] LABS: AMORPHOUS URATES 2+
--- NOTE | 2018-08-10 19:46 | NUR ---
morphine held due to low blood pressure.
[2018-08-10] MEDS ORDERED: morphine 4 MG/ML inj SYRINge IV PRN (20:15)
[2018-08-10] MEDS ORDERED: potassium Cl 20 mEq SR tablet PO PRN (20:15)
[2018-08-10] MEDS ORDERED: potassium Cl 40MEQ/NS 500ml 500 ML IV PRN ×2 (20:15)
[2018-08-10] MEDS: K, MAG and/or Phos replacement - Verify level? MC SCH (20:15)
[2018-08-10] MEDS ORDERED: magnesium hydroxide 30ml (MOM) UD suspension PO PRN (20:15)
[2018-08-10] MEDS ORDERED: acetaminophen 325mg tablet PO PRN ×2 (20:15)
[2018-08-10] MEDS ORDERED: CANA100T PO (20:32)
[2018-08-10] MEDS ORDERED: SITA100T11 PO (20:35)
[2018-08-10] MEDS ORDERED: OXYC-511 PO (20:35)
[2018-08-10] MEDS ORDERED: LACT10SO PO (20:35)
[2018-08-10] MEDS ORDERED: SPIR50TA5 PO (20:35)
[2018-08-10] MEDS ORDERED: LINA5TAB4 PO (20:35)
[2018-08-10] MEDS ORDERED: TRAZ-218 PO (20:36)
[2018-08-10] MEDS ORDERED: vancomycin inj 500 MG in normal saline 100ml IV soln 100 ML IV ONE (21:30)
[2018-08-10] MEDS: normal saline 1000ml 1,000 ML IV SCH (21:46)
[2018-08-10] MEDS ORDERED: dextrose 50%-water 50ml dispensing syringe IV PRN ×2 (22:20)
[2018-08-10] MEDS ORDERED: glucagon, human recombinant 1mg kit SUBCUT PRN (22:20)
[2018-08-10] MEDS ORDERED: dextrose ORAL solution 15 GM/59 ML bottle PO PRN ×2 (22:20)
[2018-08-10] MEDS ORDERED: MESSAGE TO PHARMACY PO ONE (22:20)
[2018-08-10 22:40] LABS: HEMOGLOBIN A1C 6.6 % (4.5-6.2)
[2018-08-11] VITALS (7 sets, daily range): BP systolic 86–118; BP diastolic 49–65
[2018-08-11] MEDS: midodrine tablet 2.5 MG TABLET PO SCH ×3 (01:50→17:33)
[2018-08-11] MEDS: albumin (human) 25% 100ml IV 100 ML IV SCH ×4 (01:51→21:57)
[2018-08-11] MEDS: piperacillin-tazo 2.25gm/50ml 50 ML IV SCH ×4 (02:41→20:25)
[2018-08-11 05:42] LABS: BASOPHILS # (AUTO) 0.1 X10'3 (0-0.2); BASOPHILS % (AUTO) 0.4 % (0-1); EOSINOPHILS # (AUTO) 0.2 X10'3 (0-0.9); EOSINOPHILS % (AUTO) 1.2 % (0-6); HEMATOCRIT 36.6 % (42.0-52.0); HEMOGLOBIN 12.6 g/dl (14.0-17.9); LYMPHOCYTES # (AUTO) 0.5 X10'3 (1.1-4.8); LYMPHOCYTES % (AUTO) 4.1 % (21-51); MEAN CORPUSCULAR HEMOGLOBIN 35.3 PG (27.0-31.0); MEAN CORPUSCULAR HGB CONC 34.4 % (33.0-36.5); MEAN CORPUSCULAR VOLUME 102.7 FL (78-98); MEAN PLATELET VOLUME 8.7 FL (7.4-10.4); MONOCYTES % (AUTO) 7.9 % (2-12); NEUTROPHILS # (AUTO) 11.3 X10'3 (1.8-7.7); NEUTROPHILS % (AUTO) 86.4 % (42-75); PLATELET COUNT 75 X10'3 (140-440); RED BLOOD COUNT 3.56 X10'6 (4.70-6.10); RED CELL DISTRIBUTION WIDTH 14.6 % (11.5-14.5); WHITE BLOOD COUNT 13.1 X10'3 (4.5-11.0)
[2018-08-11 05:56] LABS: ALANINE AMINOTRANSFERASE 15 U/L (12-78); ALBUMIN 2.6 G/DL (3.4-5.0); ALKALINE PHOSPHATASE 68 IU/L (46-116); ANION GAP 11 (8-16); ASPARTATE AMINO TRANSFERASE 25 U/L (10-37); BILIRUBIN,TOTAL 8.4 MG/DL (0.1-1.0); BLOOD UREA NITROGEN 67 MG/DL (7-18); BUN/CREATININE RATIO 21.7 (5.4-32.0); CALCIUM 7.9 MG/DL (8.5-10.1); CHLORIDE 93 MMOL/L (99-107); CREATININE 3.09 MG/DL (0.60-1.10); GLUCOSE 138 MG/DL (70-104); POTASSIUM 4.1 MMOL/L (3.5-5.1); SODIUM 127 MMOL/L (135-145); TOTAL CARBON DIOXIDE 23.3 MMOL/L (24-32); eGFR 21 ML/MIN
[2018-08-11 05:57] LABS: ALBUMIN/GLOBULIN RATIO 0.8 (1.1-1.5); TOTAL PROTEIN 5.9 G/DL (6.4-8.2)
[2018-08-11 06:01] LABS: MAGNESIUM 2.1 MG/DL (1.5-2.4)
[2018-08-11 06:03] LABS: PHOSPHORUS 3.8 MG/DL (2.3-4.5)
--- NOTE | 2018-08-11 06:14 | NUR ---
Problems reprioritized. Patient report given, questions answered & plan of care reviewed with TIMMY Roe.
--- NOTE | 2018-08-11 07:00 | NUR ---
Called Dr. Scott in regards to critical lactic acid of 4.1. Left a voicemail stating critical lactic acid of 4.1 and also stated it is trending down. Will continue to monitor. Addendum: 08/11/18 at 0707 by Jyothi Ly RN Tyler returned call and stated he will be by to see him.
[2018-08-11] MEDS: loratadine 10mg tablet PO SCH (07:26)
[2018-08-11] MEDS: carvedilol 6.25mg tablet PO SCH ×2 (07:27→20:00)
[2018-08-11] MEDS: pantoprazole 40mg Tablet.DR PO SCH (07:27)
[2018-08-11] MEDS: docusate sod 100mg capsule PO SCH ×2 (07:27→20:00)
[2018-08-11] MEDS: heparin, porcine 5000 units/ml vial SQ SCH ×2 (08:00→20:00)
[2018-08-11] MEDS: K, MAG and/or Phos replacement - Verify level? MC SCH (08:00)
--- NOTE | 2018-08-11 10:07 | NUR ---
Called Dr. Scott in regards to critical lactic acid of 4.4. No new orders at this time. Will continue to monitor.
[2018-08-11] MEDS: insulin Lispro (HumaLOG) vial - multi-dose SQ SCH ×2 (13:29→20:20)
[2018-08-11] MEDS: normal saline 1000ml 1,000 ML IV SCH (15:47)
[2018-08-11] MEDS: lactulose 20gm/30ml cup PO SCH (15:48)
--- NOTE | 2018-08-11 18:18 | NUR ---
Problems reprioritized. Patient report given, questions answered & plan of care reviewed with Deep RN.
[2018-08-11] MEDS: insulin glargine (Lantus) pen - multi-dose SQ SCH (22:15)
[2018-08-11] MEDS: traZODone 50mg tablet PO SCH (22:16)
[2018-08-11] MEDS: tamsulosin 0.4mg capsule PO SCH (22:16)
[2018-08-12] MEDS: piperacillin-tazo 2.25gm/50ml 50 ML IV SCH ×4 (01:54→19:53)
[2018-08-12] MEDS: normal saline 1000ml 1,000 ML IV SCH ×2 (01:54→19:56)
[2018-08-12] MEDS: midodrine tablet 2.5 MG TABLET PO SCH ×3 (01:54→16:41)
[2018-08-12] MEDS: albumin (human) 25% 100ml IV 100 ML IV SCH ×4 (02:40→20:00)
[2018-08-12 03:00] VITALS: BP 105/63
[2018-08-12] MEDS: ondansetron/PF 4mg/2ml inj IV PRN (04:10)
[2018-08-12 06:00] VITALS: BP 104/64
[2018-08-12 06:07] LABS: BASOPHILS % (AUTO) 0.1 % (0-1); EOSINOPHILS # (AUTO) 0.1 X10'3 (0-0.9); EOSINOPHILS % (AUTO) 1.2 % (0-6); HEMOGLOBIN 11.7 g/dl (14.0-17.9); LYMPHOCYTES # (AUTO) 0.3 X10'3 (1.1-4.8); LYMPHOCYTES % (AUTO) 3.5 % (21-51); MEAN CORPUSCULAR HEMOGLOBIN 35.3 PG (27.0-31.0); MEAN CORPUSCULAR HGB CONC 34.5 % (33.0-36.5); MEAN CORPUSCULAR VOLUME 102.3 FL (78-98); MEAN PLATELET VOLUME 8.3 FL (7.4-10.4); MONOCYTES # (AUTO) 0.9 X10'3 (0-0.9); MONOCYTES % (AUTO) 8.7 % (2-12); NEUTROPHILS # (AUTO) 8.6 X10'3 (1.8-7.7); NEUTROPHILS % (AUTO) 86.5 % (42-75); PLATELET COUNT 58 X10'3 (140-440); RED BLOOD COUNT 3.32 X10'6 (4.70-6.10); RED CELL DISTRIBUTION WIDTH 15.2 % (11.5-14.5); WHITE BLOOD COUNT 9.9 X10'3 (4.5-11.0)
--- NOTE | 2018-08-12 06:18 | NUR ---
Patient in room PCU 3025. I have received report from Leonard WARNER and had the opportunity to ask questions and assume patient care.
--- NOTE | 2018-08-12 06:24 | NUR ---
Problems reprioritized. Patient report given, questions answered & plan of care reviewed with TIMMY Roe.
[2018-08-12 06:25] LABS: ALANINE AMINOTRANSFERASE 16 U/L (12-78); ALBUMIN 3.4 G/DL (3.4-5.0); ALKALINE PHOSPHATASE 59 IU/L (46-116); ANION GAP 13 (8-16); ASPARTATE AMINO TRANSFERASE 26 U/L (10-37); BILIRUBIN,TOTAL 7.9 MG/DL (0.1-1.0); CALCIUM 8.4 MG/DL (8.5-10.1); CHLORIDE 94 MMOL/L (99-107); CREATININE 2.64 MG/DL (0.60-1.10); GLUCOSE 152 MG/DL (70-104); MAGNESIUM 2.3 MG/DL (1.5-2.4); POTASSIUM 3.5 MMOL/L (3.5-5.1); SODIUM 128 MMOL/L (135-145); TOTAL CARBON DIOXIDE 21.1 MMOL/L (24-32); eGFR 25 ML/MIN
[2018-08-12 06:35] LABS: BLOOD UREA NITROGEN 71 MG/DL (7-18); BUN/CREATININE RATIO 26.9 (5.4-32.0)
[2018-08-12 06:39] LABS: ALBUMIN/GLOBULIN RATIO 1.3 (1.1-1.5); PHOSPHORUS 3.5 MG/DL (2.3-4.5)
[2018-08-12] MEDS: docusate sod 100mg capsule PO SCH ×3 (07:21→20:00)
[2018-08-12] MEDS: lactulose 20gm/30ml cup PO SCH (07:22)
[2018-08-12] MEDS: pantoprazole 40mg Tablet.DR PO SCH (07:22)
[2018-08-12] MEDS: loratadine 10mg tablet PO SCH (07:22)
[2018-08-12] MEDS: carvedilol 6.25mg tablet PO SCH ×2 (07:23→19:53)
[2018-08-12] MEDS: heparin, porcine 5000 units/ml vial SQ SCH ×2 (07:24→20:00)
[2018-08-12] MEDS: K, MAG and/or Phos replacement - Verify level? MC SCH (08:00)
[2018-08-12] MEDS: insulin Lispro (HumaLOG) vial - multi-dose SQ SCH (09:46)
[2018-08-12 11:00] VITALS: BP 99/50
--- NOTE | 2018-08-12 14:00 | NUR ---
Called [facility] and asked if they were going to do the paracentesis today. Per the nurse that I spoke with, the paracentesis will be done tomorrow because pt just had a paracentesis on 08/07/2018. I explained that the patient was very uncomfortable, however, no change in date for procedure.
[2018-08-12 15:00] VITALS: BP 107/61
--- NOTE | 2018-08-12 18:23 | NUR ---
Problems reprioritized. Patient report given, questions answered & plan of care reviewed with Deep RN.
[2018-08-12 19:00] VITALS: BP 105/67
[2018-08-12] MEDS: tamsulosin 0.4mg capsule PO SCH (19:55)
[2018-08-12] MEDS: traZODone 50mg tablet PO SCH (19:55)
--- NOTE | 2018-08-12 20:50 | NUR ---
pt has an order for Albumin (human) 25% 100ml IV @100ml/hr Q6hrs. Medication out of stock in both omni-cells. pharmacy notified via Electronic messaging system. Pending order fill/response.
[2018-08-12] MEDS ORDERED: albumin (Human) 5% 250ml 250 ML IV ONE (21:00)
--- NOTE | 2018-08-12 21:03 | NUR ---
Called Javier Gonzales NP in regards to pt albumin 25% out of stock. Order to infuse 5%/250ml @250ml once one time. Anticipating the 25% will be in stock tomorrow per pharmacy.
[2018-08-12] MEDS: insulin glargine (Lantus) pen - multi-dose SQ SCH (22:28)
[2018-08-12 23:00] VITALS: BP 110/71
[2018-08-13] VITALS (8 sets, daily range): BP systolic 93–114; BP diastolic 55–68
[2018-08-13] MEDS: midodrine tablet 2.5 MG TABLET PO SCH ×4 (00:19→23:50)
[2018-08-13] MEDS: albumin (human) 25% 100ml IV 100 ML IV SCH ×4 (02:00→21:49)
[2018-08-13] MEDS: piperacillin-tazo 2.25gm/50ml 50 ML IV SCH ×4 (02:50→21:01)
[2018-08-13 05:00] LABS: BASOPHILS % (AUTO) 0 % (0-1); EOSINOPHILS # (AUTO) 0.2 X10'3 (0-0.9); EOSINOPHILS % (AUTO) 1.9 % (0-6); HEMOGLOBIN 11.2 g/dl (14.0-17.9); LYMPHOCYTES # (AUTO) 0.3 X10'3 (1.1-4.8); MEAN CORPUSCULAR HEMOGLOBIN 34.8 PG (27.0-31.0); MEAN CORPUSCULAR HGB CONC 33.9 % (33.0-36.5); MEAN CORPUSCULAR VOLUME 102.5 FL (78-98); MEAN PLATELET VOLUME 8.5 FL (7.4-10.4); MONOCYTES # (AUTO) 0.8 X10'3 (0-0.9); MONOCYTES % (AUTO) 9.9 % (2-12); NEUTROPHILS # (AUTO) 6.8 X10'3 (1.8-7.7); NEUTROPHILS % (AUTO) 84.2 % (42-75); PLATELET COUNT 58 X10'3 (140-440); RED BLOOD COUNT 3.22 X10'6 (4.70-6.10); RED CELL DISTRIBUTION WIDTH 15.7 % (11.5-14.5); WHITE BLOOD COUNT 8.1 X10'3 (4.5-11.0)
[2018-08-13 05:19] LABS: ALANINE AMINOTRANSFERASE 13 U/L (12-78); ALBUMIN 2.9 G/DL (3.4-5.0); ALKALINE PHOSPHATASE 52 IU/L (46-116); ANION GAP 14 (8-16); ASPARTATE AMINO TRANSFERASE 28 U/L (10-37); BLOOD UREA NITROGEN 74 MG/DL (7-18); BUN/CREATININE RATIO 30.5 (5.4-32.0); CALCIUM 7.9 MG/DL (8.5-10.1); CHLORIDE 97 MMOL/L (99-107); CREATININE 2.43 MG/DL (0.60-1.10); GLUCOSE 113 MG/DL (70-104); MAGNESIUM 2.2 MG/DL (1.5-2.4); SODIUM 131 MMOL/L (135-145); TOTAL CARBON DIOXIDE 19.6 MMOL/L (24-32); eGFR 27 ML/MIN
[2018-08-13 05:25] LABS: ALBUMIN/GLOBULIN RATIO 1.1 (1.1-1.5); POTASSIUM 3.5 MMOL/L (3.5-5.1); TOTAL PROTEIN 5.5 G/DL (6.4-8.2)
--- NOTE | 2018-08-13 06:49 | NUR ---
Problems reprioritized. Patient report given, questions answered & plan of care reviewed with Priscilla WARNER.
[2018-08-13] MEDS: loratadine 10mg tablet PO SCH (07:37)
[2018-08-13] MEDS: pantoprazole 40mg Tablet.DR PO SCH (07:37)
[2018-08-13] MEDS: carvedilol 6.25mg tablet PO SCH ×2 (07:37→21:02)
[2018-08-13] MEDS: lactulose 20gm/30ml cup PO SCH (07:59)
[2018-08-13] MEDS: K, MAG and/or Phos replacement - Verify level? MC SCH (07:59)
[2018-08-13] MEDS: docusate sod 100mg capsule PO SCH ×2 (07:59→20:00)
[2018-08-13] MEDS: heparin, porcine 5000 units/ml vial SQ SCH ×2 (08:00→20:00)
[2018-08-13] MEDS ORDERED: LIDOcaine 1%/PF 5ML 10 MG/ML VIAL ONE ×2 (13:40→14:34)
--- NOTE | 2018-08-13 13:43 | NUR ---
DR. HARGROVE HERE TO EVAL PATIENT. SPOKE WITH PATIENT AND DAUGHTER RE: POSSIBLE HOSPICE CONSULT. DISCHARGE PLANNING NOTIFIED OF THIS NEED FOR THE PATIENT.
--- NOTE | 2018-08-13 14:20 | NUR ---
INTERVENTIONAL RADIOLOGY AT THE BEDSIDE PERFORMING PARACENTESIS. DAUGHTER AT THE BEDSIDE.
[2018-08-13 15:47] LABS: ALBUMIN,BODY FLUID 0.8 G/DL; AMYLASE,BODY FLUID 21 U/L; TOTAL PROTEIN,BODY FLUID 2.1 G/DL
[2018-08-13 16:02] LABS: BFAPPEAR TURBID
[2018-08-13 16:03] LABS: BF WBC COUNT 2450 /CU MM (0-1000); BFCOLOR YELLOW; BFVOLUME 54 ML
[2018-08-13 16:04] LABS: BF RBC COUNT 5775 /CU MM; LYMPHOCYTES,BODY FLUID 6 %; MONOCYTES,BODY FLUID 4 %; NEUTROPHILS,BODY FLUID 90 %
--- NOTE | 2018-08-13 18:10 | NUR ---
Patient in room PCU 3025. I have received report from Priscilla WARNER and had the opportunity to ask questions and assume patient care.
--- NOTE | 2018-08-13 18:34 | NUR ---
Problems reprioritized. Patient report given, questions answered & plan of care reviewed with TIMMY BALDWIN.
[2018-08-13] MEDS: normal saline 1000ml 1,000 ML IV SCH ×2 (19:31→23:50)
[2018-08-13] MEDS ORDERED: lactobacillus rhamnosus 10,000 MMU CELLS/CAPSULE PO SCH (20:00)
[2018-08-13] MEDS ORDERED: VANCOMYCIN LEVEL IV ONE (20:30)
[2018-08-13] MEDS: traZODone 50mg tablet PO SCH (21:01)
[2018-08-13] MEDS: tamsulosin 0.4mg capsule PO SCH (21:02)
[2018-08-13] MEDS: insulin glargine (Lantus) pen - multi-dose SQ SCH (21:03)
[2018-08-14] VITALS (8 sets, daily range): BP systolic 81–131; BP diastolic 43–71
[2018-08-14] MEDS: piperacillin-tazo 2.25gm/50ml 50 ML IV SCH ×4 (02:28→20:30)
[2018-08-14] MEDS: albumin (human) 25% 100ml IV 100 ML IV SCH ×2 (03:19→09:39)
[2018-08-14 05:41] LABS: BASOPHILS % (AUTO) 0.3 % (0-1); EOSINOPHILS # (AUTO) 0.2 X10'3 (0-0.9); HEMOGLOBIN 9.6 g/dl (14.0-17.9); LYMPHOCYTES # (AUTO) 0.4 X10'3 (1.1-4.8); LYMPHOCYTES % (AUTO) 6.2 % (21-51); MEAN CORPUSCULAR HEMOGLOBIN 34.9 PG (27.0-31.0); MEAN CORPUSCULAR HGB CONC 34.2 % (33.0-36.5); MEAN CORPUSCULAR VOLUME 102.2 FL (78-98); MEAN PLATELET VOLUME 8.1 FL (7.4-10.4); MONOCYTES # (AUTO) 0.6 X10'3 (0-0.9); MONOCYTES % (AUTO) 10.4 % (2-12); NEUTROPHILS # (AUTO) 4.6 X10'3 (1.8-7.7); NEUTROPHILS % (AUTO) 80.1 % (42-75); PLATELET COUNT 55 X10'3 (140-440); RED BLOOD COUNT 2.74 X10'6 (4.70-6.10); RED CELL DISTRIBUTION WIDTH 15.5 % (11.5-14.5); WHITE BLOOD COUNT 5.8 X10'3 (4.5-11.0)
[2018-08-14 05:59] LABS: ALANINE AMINOTRANSFERASE 14 U/L (12-78); ALBUMIN 3.1 G/DL (3.4-5.0); ALKALINE PHOSPHATASE 46 IU/L (46-116); ANION GAP 13 (8-16); ASPARTATE AMINO TRANSFERASE 23 U/L (10-37); BILIRUBIN,TOTAL 7.2 MG/DL (0.1-1.0); BLOOD UREA NITROGEN 74 MG/DL (7-18); BUN/CREATININE RATIO 31.2 (5.4-32.0); CALCIUM 7.9 MG/DL (8.5-10.1); CHLORIDE 97 MMOL/L (99-107); CREATININE 2.37 MG/DL (0.60-1.10); GLUCOSE 82 MG/DL (70-104); MAGNESIUM 2.3 MG/DL (1.5-2.4); SODIUM 132 MMOL/L (135-145); TOTAL CARBON DIOXIDE 22.5 MMOL/L (24-32); eGFR 28 ML/MIN
[2018-08-14 06:01] LABS: ALBUMIN/GLOBULIN RATIO 1.6 (1.1-1.5); PHOSPHORUS 3.7 MG/DL (2.3-4.5); TOTAL PROTEIN 5.1 G/DL (6.4-8.2)
--- NOTE | 2018-08-14 06:18 | NUR ---
Gave report to More WARNER, pt is resting on RA, in no apparent distress, NS running@50mL/hr, call light and items of freq use within reach.
--- NOTE | 2018-08-14 06:34 | NUR ---
Patient in room PCU 3025. I have received report from tyree WARNER and had the opportunity to ask questions and assume patient care.
[2018-08-14] MEDS: lactulose 20gm/30ml cup PO SCH (07:04)
[2018-08-14] MEDS: pantoprazole 40mg Tablet.DR PO SCH (07:04)
[2018-08-14] MEDS: midodrine tablet 2.5 MG TABLET PO SCH ×2 (07:05→15:49)
[2018-08-14] MEDS: loratadine 10mg tablet PO SCH (07:05)
[2018-08-14] MEDS: heparin, porcine 5000 units/ml vial SQ SCH ×2 (07:05→20:00)
[2018-08-14] MEDS: carvedilol 6.25mg tablet PO SCH ×2 (07:06→20:37)
[2018-08-14] MEDS: docusate sod 100mg capsule PO SCH ×2 (07:09→20:00)
[2018-08-14] MEDS: potassium Cl 20 mEq SR tablet PO PRN ×3 (07:37→17:39)
[2018-08-14] MEDS: K, MAG and/or Phos replacement - Verify level? MC SCH (08:00)
[2018-08-14] MEDS: morphine 4 MG/ML inj SYRINge IV PRN (10:23)
[2018-08-14] MEDS: insulin Lispro (HumaLOG) vial - multi-dose SQ SCH ×2 (12:59→20:28)
[2018-08-14] MEDS ORDERED: albumin 25% 50mL bottle 100 ML IV SCH (15:00)
[2018-08-14] MEDS: oxyCODONE IR 5mg (immed. release) tablet PO PRN (16:45)
--- NOTE | 2018-08-14 17:47 | NUR ---
Patient was seen by Dr Romero, plan is for patient to have Asoira drain placed fri. [facility] aware. patient spoke with Dr Romero and Hospice nurse. want to be DNR. Melissa Charge NUrse aware. Awaiting order. Family present. Resting comfortably at time of report. Oxycodone 5mg effective for pain relief
--- NOTE | 2018-08-14 18:35 | NUR ---
Problems reprioritized. Patient report given, questions answered & plan of care reviewed with carl owusu.
--- NOTE | 2018-08-14 18:40 | NUR ---
Patient in room PCU 3025. I have received report from JAIDEN WARNER and had the opportunity to ask questions and assume patient care.
[2018-08-14] MEDS ORDERED: VANCOMYCIN LEVEL IV ONE (20:30)
[2018-08-14] MEDS: lactobacillus rhamnosus 10,000 MMU CELLS/CAPSULE PO SCH (20:33)
[2018-08-14] MEDS: traZODone 50mg tablet PO SCH (20:33)
[2018-08-14] MEDS: tamsulosin 0.4mg capsule PO SCH (20:34)
[2018-08-14] MEDS: normal saline 1000ml 1,000 ML IV SCH (20:42)
[2018-08-14] MEDS: insulin glargine (Lantus) pen - multi-dose SQ SCH (21:46)
--- NOTE | 2018-08-14 23:34 | NUR ---
Patient report given, questions answered & plan of care reviewed with MATTHEW WARNER.
--- NOTE | 2018-08-14 23:35 | NUR ---
Patient in room PCU 3025. I have received report from Osvaldo WARNER and had the opportunity to ask questions and assume patient care.
[2018-08-15] MEDS: midodrine tablet 2.5 MG TABLET PO SCH ×4 (01:46→23:26)
[2018-08-15] MEDS: piperacillin-tazo 2.25gm/50ml 50 ML IV SCH ×4 (01:46→19:28)
[2018-08-15] MEDS: oxyCODONE IR 5mg (immed. release) tablet PO PRN ×3 (01:47→21:37)
[2018-08-15 02:00] VITALS: BP 92/53
[2018-08-15 06:00] VITALS: BP 87/46
--- NOTE | 2018-08-15 06:20 | NUR ---
Patient in room PCU 3025. I have received report from Kat and had the opportunity to ask questions and assume patient care.
--- NOTE | 2018-08-15 06:35 | NUR ---
Problems reprioritized. Patient report given, questions answered & plan of care reviewed with Sonia WARNER.
[2018-08-15 07:28] LABS: BASOPHILS % (AUTO) 0.4 % (0-1); EOSINOPHILS # (AUTO) 0.2 X10'3 (0-0.9); EOSINOPHILS % (AUTO) 2.8 % (0-6); HEMATOCRIT 34.8 % (42.0-52.0); HEMOGLOBIN 11.9 g/dl (14.0-17.9); LYMPHOCYTES # (AUTO) 0.4 X10'3 (1.1-4.8); LYMPHOCYTES % (AUTO) 5.4 % (21-51); MEAN CORPUSCULAR HEMOGLOBIN 36.1 PG (27.0-31.0); MEAN CORPUSCULAR HGB CONC 34.4 % (33.0-36.5); MEAN PLATELET VOLUME 9.1 FL (7.4-10.4); MONOCYTES # (AUTO) 0.7 X10'3 (0-0.9); MONOCYTES % (AUTO) 9.7 % (2-12); NEUTROPHILS # (AUTO) 5.4 X10'3 (1.8-7.7); NEUTROPHILS % (AUTO) 81.7 % (42-75); PLATELET COUNT 60 X10'3 (140-440); RED BLOOD COUNT 3.31 X10'6 (4.70-6.10); RED CELL DISTRIBUTION WIDTH 14.1 % (11.5-14.5); WHITE BLOOD COUNT 6.7 X10'3 (4.5-11.0)
[2018-08-15 07:35] LABS: ALANINE AMINOTRANSFERASE 18 U/L (12-78); ALBUMIN 3.1 G/DL (3.4-5.0); ALKALINE PHOSPHATASE 64 IU/L (46-116); ANION GAP 12 (8-16); ASPARTATE AMINO TRANSFERASE 37 U/L (10-37); BILIRUBIN,TOTAL 7.9 MG/DL (0.1-1.0); BLOOD UREA NITROGEN 75 MG/DL (7-18); BUN/CREATININE RATIO 32.2 (5.4-32.0); CALCIUM 8.2 MG/DL (8.5-10.1); CHLORIDE 101 MMOL/L (99-107); CREATININE 2.33 MG/DL (0.60-1.10); GLUCOSE 107 MG/DL (70-104); MAGNESIUM 2.5 MG/DL (1.5-2.4); SODIUM 134 MMOL/L (135-145); TOTAL CARBON DIOXIDE 21.5 MMOL/L (24-32); eGFR 28 ML/MIN
[2018-08-15 07:37] LABS: ALBUMIN/GLOBULIN RATIO 1.2 (1.1-1.5); PHOSPHORUS 3.6 MG/DL (2.3-4.5); POTASSIUM 4.2 MMOL/L (3.5-5.1); TOTAL PROTEIN 5.6 G/DL (6.4-8.2)
[2018-08-15] MEDS: K, MAG and/or Phos replacement - Verify level? MC SCH (08:00)
[2018-08-15] MEDS: lactulose 20gm/30ml cup PO SCH (08:00)
[2018-08-15] MEDS: docusate sod 100mg capsule PO SCH ×2 (08:00→19:33)
[2018-08-15] MEDS: carvedilol 6.25mg tablet PO SCH ×2 (08:00→19:56)
[2018-08-15] MEDS: heparin, porcine 5000 units/ml vial SQ SCH ×2 (08:00→19:34)
[2018-08-15] MEDS: insulin Lispro (HumaLOG) vial - multi-dose SQ SCH ×3 (08:14→19:32)
[2018-08-15] MEDS: pantoprazole 40mg Tablet.DR PO SCH (08:24)
[2018-08-15] MEDS: loratadine 10mg tablet PO SCH (08:24)
[2018-08-15] MEDS: lactobacillus rhamnosus 10,000 MMU CELLS/CAPSULE PO SCH ×2 (08:24→19:28)
[2018-08-15 08:30] VITALS: BP 95/56
[2018-08-15] MEDS: NUT.TX.IMP.RENAL FXN,LAC-REDUC (Nepro) 237 ML VANILLA PO SCH ×2 (13:00→18:00)
--- NOTE | 2018-08-15 13:50 | NUR ---
Problems reprioritized. Patient report given, questions answered & plan of care reviewed with Stephanie.
--- NOTE | 2018-08-15 13:58 | NUR ---
Patient in room PCU 3025. I have received report from J LUIS WARNER and had the opportunity to ask questions and assume patient care.
--- NOTE | 2018-08-15 14:09 | NUR ---
Initial: Pt admit w/ weakness hx R kidney removal w/ kidney and liver CA. DX sepsis, heart failure, and confusion present. Large volume fo ascites -5.9L from paracentesis 08/13 and requiring Q2 days to survive per MD note. Pt refused lactulose today w/ LBM 08/14 and PO fluctuated between refusal/100% w/ confusion. Nepro TIDWM added for additional nutrition given fluctuating PO on renal diet and additional protein needs w/ frequent fluid removal. Will continue to monitor. Rec: 1. continue renal diet 2. Nepro TIDWM 3. wt per rx Addendum: 08/15/18 at [address] Amended: Links added.
--- NOTE | 2018-08-15 14:49 | NUR ---
AGREE WITH PHYSICAL ASSESSMENT DONE THIS AM BY ABIGAIL WARNER Addendum: 08/15/18 at 1449 by Shannon Quigley RN Amended: Links added.
[2018-08-15 15:59] VITALS: BP 95/53
[2018-08-15 18:00] VITALS: BP 83/57
--- NOTE | 2018-08-15 18:30 | NUR ---
Patient in room PCU 3025. I have received report from Kriss WARNER and had the opportunity to ask questions and assume patient care.
[2018-08-15] MEDS: ondansetron/PF 4mg/2ml inj IV PRN (21:30)
[2018-08-15] MEDS: traZODone 50mg tablet PO SCH (21:37)
[2018-08-15] MEDS: tamsulosin 0.4mg capsule PO SCH (21:38)
[2018-08-15] MEDS: insulin glargine (Lantus) pen - multi-dose SQ SCH (21:52)
[2018-08-15 22:00] VITALS: BP 101/58
[2018-08-16] MEDS: piperacillin-tazo 2.25gm/50ml 50 ML IV SCH ×4 (01:57→19:20)
[2018-08-16 02:00] VITALS: BP 100/66
[2018-08-16] MEDS: oxyCODONE IR 5mg (immed. release) tablet PO PRN ×2 (05:07→19:22)
[2018-08-16 06:00] VITALS: BP 103/60
[2018-08-16 06:06] LABS: BASOPHILS % (AUTO) 0.2 % (0-1); EOSINOPHILS # (AUTO) 0.1 X10'3 (0-0.9); EOSINOPHILS % (AUTO) 1.7 % (0-6); HEMATOCRIT 34.3 % (42.0-52.0); HEMOGLOBIN 11.8 g/dl (14.0-17.9); LYMPHOCYTES # (AUTO) 0.3 X10'3 (1.1-4.8); LYMPHOCYTES % (AUTO) 3.9 % (21-51); MEAN CORPUSCULAR HEMOGLOBIN 35.8 PG (27.0-31.0); MEAN CORPUSCULAR HGB CONC 34.5 % (33.0-36.5); MEAN CORPUSCULAR VOLUME 103.8 FL (78-98); MONOCYTES # (AUTO) 0.8 X10'3 (0-0.9); NEUTROPHILS # (AUTO) 7.6 X10'3 (1.8-7.7); NEUTROPHILS % (AUTO) 85.2 % (42-75); PLATELET COUNT 69 X10'3 (140-440); RED CELL DISTRIBUTION WIDTH 14.2 % (11.5-14.5); WHITE BLOOD COUNT 8.8 X10'3 (4.5-11.0)
--- NOTE | 2018-08-16 06:07 | NUR ---
Patient in room PCU 3025. I have received report from Madelyn WARNER and had the opportunity to ask questions and assume patient care.
--- NOTE | 2018-08-16 06:22 | NUR ---
Problems reprioritized. Patient report given, questions answered & plan of care reviewed with Debbie WARNER.
[2018-08-16 06:28] LABS: ALANINE AMINOTRANSFERASE 25 U/L (12-78); ALBUMIN 2.8 G/DL (3.4-5.0); ALKALINE PHOSPHATASE 122 IU/L (46-116); ANION GAP 12 (8-16); ASPARTATE AMINO TRANSFERASE 49 U/L (10-37); BILIRUBIN,TOTAL 8.8 MG/DL (0.1-1.0); BLOOD UREA NITROGEN 79 MG/DL (7-18); BUN/CREATININE RATIO 34.2 (5.4-32.0); CALCIUM 8.2 MG/DL (8.5-10.1); CHLORIDE 96 MMOL/L (99-107); CREATININE 2.31 MG/DL (0.60-1.10); MAGNESIUM 2.4 MG/DL (1.5-2.4); SODIUM 128 MMOL/L (135-145); TOTAL CARBON DIOXIDE 20.5 MMOL/L (24-32); eGFR 29 ML/MIN
[2018-08-16 06:50] LABS: ALBUMIN/GLOBULIN RATIO 0.9 (1.1-1.5); GLUCOSE 194 MG/DL (70-104); PHOSPHORUS 3.6 MG/DL (2.3-4.5)
[2018-08-16] MEDS: pantoprazole 40mg Tablet.DR PO SCH (06:51)
[2018-08-16] MEDS: normal saline 1000ml 1,000 ML IV SCH (07:31)
[2018-08-16] MEDS: lactobacillus rhamnosus 10,000 MMU CELLS/CAPSULE PO SCH ×2 (07:35→19:21)
[2018-08-16] MEDS: midodrine tablet 2.5 MG TABLET PO SCH ×2 (07:35→15:26)
[2018-08-16] MEDS: loratadine 10mg tablet PO SCH (07:35)
[2018-08-16] MEDS: docusate sod 100mg capsule PO SCH ×2 (07:36→19:24)
[2018-08-16] MEDS: carvedilol 6.25mg tablet PO SCH ×2 (07:43→19:23)
[2018-08-16] MEDS: lactulose 20gm/30ml cup PO SCH (08:00)
[2018-08-16] MEDS: heparin, porcine 5000 units/ml vial SQ SCH ×2 (08:00→18:57)
[2018-08-16] MEDS: K, MAG and/or Phos replacement - Verify level? MC SCH (08:00)
[2018-08-16] MEDS: insulin Lispro (HumaLOG) vial - multi-dose SQ SCH ×3 (08:57→19:19)
[2018-08-16] MEDS: morphine 4 MG/ML inj SYRINge IV PRN (09:51)
[2018-08-16 11:00] VITALS: BP 94/60
[2018-08-16] MEDS: NUT.TX.IMP.RENAL FXN,LAC-REDUC (Nepro) 237 ML VANILLA PO SCH ×2 (13:00→18:00)
[2018-08-16 15:00] VITALS: BP 85/57
--- NOTE | 2018-08-16 18:15 | NUR ---
Patient in room PCU 3025. I have received report from TIMMY Lewis and had the opportunity to ask questions and assume patient care. Pt is sitting in bed with daughter, Kriss at the bedside. Pt reports pain around abdomen due to ascites. Requesting pain meds when I return.Per report, paracentesis should be done [id number]. Pt said last para was on 08/13 and 6L was removed. POC per report was that pt to have procedure this Friday to place a drain instead of continuing paracentesis Q2 weeks. Pt ate 49 grams of carbs on dinner tray. Will return with tonight's insulin. He is level 5 per day shift.
--- NOTE | 2018-08-16 18:29 | NUR ---
Problems reprioritized. Patient report given, questions answered & plan of care reviewed with Darline WARNER.
[2018-08-16 19:00] VITALS: BP 99/61
[2018-08-16] MEDS: insulin glargine (Lantus) pen - multi-dose SQ SCH (21:17)
[2018-08-16] MEDS: tamsulosin 0.4mg capsule PO SCH (21:19)
[2018-08-16] MEDS: traZODone 50mg tablet PO SCH (21:19)
[2018-08-16 23:00] VITALS: BP 90/51
[2018-08-17] VITALS (7 sets, daily range): BP systolic 86–103; BP diastolic 50–62
[2018-08-17] MEDS: midodrine tablet 2.5 MG TABLET PO SCH ×3 (00:24→15:33)
[2018-08-17] MEDS: morphine 4 MG/ML inj SYRINge IV PRN ×3 (00:42→19:33)
[2018-08-17] MEDS: piperacillin-tazo 2.25gm/50ml 50 ML IV SCH ×4 (02:25→19:32)
[2018-08-17] MEDS: normal saline 1000ml 1,000 ML IV SCH ×2 (02:27→23:31)
--- NOTE | 2018-08-17 06:20 | NUR ---
Patient in room PCU 3025. I have received report from TIMMY Evans and had the opportunity to ask questions and assume patient care.
--- NOTE | 2018-08-17 06:27 | NUR ---
Problems reprioritized. Patient report given, questions answered & plan of care reviewed with Mirna WARNER.
[2018-08-17 07:12] LABS: BASOPHILS % (AUTO) 0.3 % (0-1); EOSINOPHILS # (AUTO) 0.3 X10'3 (0-0.9); EOSINOPHILS % (AUTO) 2.9 % (0-6); HEMATOCRIT 31.8 % (42.0-52.0); HEMOGLOBIN 10.8 g/dl (14.0-17.9); LYMPHOCYTES # (AUTO) 0.3 X10'3 (1.1-4.8); LYMPHOCYTES % (AUTO) 3.7 % (21-51); MEAN CORPUSCULAR HEMOGLOBIN 35.5 PG (27.0-31.0); MEAN CORPUSCULAR HGB CONC 33.9 % (33.0-36.5); MEAN CORPUSCULAR VOLUME 104.7 FL (78-98); MEAN PLATELET VOLUME 8.8 FL (7.4-10.4); MONOCYTES # (AUTO) 0.8 X10'3 (0-0.9); MONOCYTES % (AUTO) 9.4 % (2-12); NEUTROPHILS # (AUTO) 7.5 X10'3 (1.8-7.7); NEUTROPHILS % (AUTO) 83.7 % (42-75); PLATELET COUNT 66 X10'3 (140-440); RED BLOOD COUNT 3.04 X10'6 (4.70-6.10); RED CELL DISTRIBUTION WIDTH 14.5 % (11.5-14.5); WHITE BLOOD COUNT 8.9 X10'3 (4.5-11.0)
[2018-08-17 07:20] LABS: ALANINE AMINOTRANSFERASE 24 U/L (12-78); ALBUMIN 2.6 G/DL (3.4-5.0); ALKALINE PHOSPHATASE 116 IU/L (46-116); ANION GAP 12 (8-16); ASPARTATE AMINO TRANSFERASE 36 U/L (10-37); BILIRUBIN,TOTAL 5.9 MG/DL (0.1-1.0); BLOOD UREA NITROGEN 80 MG/DL (7-18); BUN/CREATININE RATIO 30.7 (5.4-32.0); CALCIUM 8.2 MG/DL (8.5-10.1); CHLORIDE 96 MMOL/L (99-107); CREATININE 2.61 MG/DL (0.60-1.10); MAGNESIUM 2.5 MG/DL (1.5-2.4); POTASSIUM 3.8 MMOL/L (3.5-5.1); SODIUM 129 MMOL/L (135-145); eGFR 25 ML/MIN
[2018-08-17] MEDS: docusate sod 100mg capsule PO SCH ×2 (07:21→19:32)
[2018-08-17] MEDS: pantoprazole 40mg Tablet.DR PO SCH (07:21)
[2018-08-17] MEDS: loratadine 10mg tablet PO SCH (07:21)
[2018-08-17] MEDS: lactobacillus rhamnosus 10,000 MMU CELLS/CAPSULE PO SCH ×2 (07:22→19:33)
[2018-08-17] MEDS: lactulose 20gm/30ml cup PO SCH (07:23)
[2018-08-17 07:24] LABS: ALBUMIN/GLOBULIN RATIO 0.8 (1.1-1.5); GLUCOSE 154 MG/DL (70-104); PHOSPHORUS 4.6 MG/DL (2.3-4.5); TOTAL PROTEIN 5.9 G/DL (6.4-8.2)
[2018-08-17] MEDS: heparin, porcine 5000 units/ml vial SQ SCH ×2 (07:24→19:10)
[2018-08-17] MEDS: carvedilol 6.25mg tablet PO SCH ×2 (07:24→20:00)
[2018-08-17] MEDS: NUT.TX.IMP.RENAL FXN,LAC-REDUC (Nepro) 237 ML VANILLA PO SCH ×3 (07:36→18:00)
[2018-08-17] MEDS: K, MAG and/or Phos replacement - Verify level? MC SCH (07:47)
[2018-08-17] MEDS: insulin Lispro (HumaLOG) vial - multi-dose SQ SCH ×3 (08:52→19:30)
--- NOTE | 2018-08-17 18:38 | NUR ---
Problems reprioritized. Patient report given, questions answered & plan of care reviewed with TIMMY Evans.
--- NOTE | 2018-08-17 18:51 | NUR ---
Patient in room PCU 3025. I have received report from Mirna WARNER and had the opportunity to ask questions and assume patient care. Pt resting in bed. Family at the bedside. Pt barely ate dinner due to distention related to his ascites. He is a level 5 per hyperglycemic protocol. Will correct just for BG level before dinner.
[2018-08-17] MEDS: insulin glargine (Lantus) pen - multi-dose SQ SCH (21:37)
[2018-08-17] MEDS: tamsulosin 0.4mg capsule PO SCH (21:38)
[2018-08-17] MEDS: traZODone 50mg tablet PO SCH (21:38)
[2018-08-18] VITALS (8 sets, daily range): BP systolic 93–108; BP diastolic 53–64
[2018-08-18] MEDS: midodrine tablet 2.5 MG TABLET PO SCH ×3 (00:33→16:57)
[2018-08-18] MEDS: oxyCODONE IR 5mg (immed. release) tablet PO PRN ×2 (02:28→12:04)
[2018-08-18] MEDS: piperacillin-tazo 2.25gm/50ml 50 ML IV SCH ×2 (02:28→08:07)
[2018-08-18 05:16] LABS: BASOPHILS % (AUTO) 0.3 % (0-1); EOSINOPHILS # (AUTO) 0.2 X10'3 (0-0.9); EOSINOPHILS % (AUTO) 2.2 % (0-6); HEMATOCRIT 30.2 % (42.0-52.0); HEMOGLOBIN 10.7 g/dl (14.0-17.9); LYMPHOCYTES # (AUTO) 0.4 X10'3 (1.1-4.8); LYMPHOCYTES % (AUTO) 3.8 % (21-51); MEAN CORPUSCULAR HEMOGLOBIN 36.4 PG (27.0-31.0); MEAN CORPUSCULAR HGB CONC 35.5 % (33.0-36.5); MEAN CORPUSCULAR VOLUME 102.7 FL (78-98); MEAN PLATELET VOLUME 8.8 FL (7.4-10.4); MONOCYTES % (AUTO) 9.8 % (2-12); NEUTROPHILS # (AUTO) 8.6 X10'3 (1.8-7.7); NEUTROPHILS % (AUTO) 83.9 % (42-75); PLATELET COUNT 74 X10'3 (140-440); RED BLOOD COUNT 2.94 X10'6 (4.70-6.10); RED CELL DISTRIBUTION WIDTH 14.6 % (11.5-14.5); WHITE BLOOD COUNT 10.2 X10'3 (4.5-11.0)
[2018-08-18 05:24] LABS: ALANINE AMINOTRANSFERASE 22 U/L (12-78); ALBUMIN 2.4 G/DL (3.4-5.0); ALKALINE PHOSPHATASE 108 IU/L (46-116); ANION GAP 8 (8-16); ASPARTATE AMINO TRANSFERASE 30 U/L (10-37); BILIRUBIN,TOTAL 5.2 MG/DL (0.1-1.0); BLOOD UREA NITROGEN 83 MG/DL (7-18); BUN/CREATININE RATIO 29.1 (5.4-32.0); CHLORIDE 96 MMOL/L (99-107); CREATININE 2.85 MG/DL (0.60-1.10); MAGNESIUM 2.4 MG/DL (1.5-2.4); POTASSIUM 3.9 MMOL/L (3.5-5.1); SODIUM 127 MMOL/L (135-145); TOTAL CARBON DIOXIDE 23.1 MMOL/L (24-32); eGFR 23 ML/MIN
[2018-08-18 05:45] LABS: ALBUMIN/GLOBULIN RATIO 0.7 (1.1-1.5); GLUCOSE 164 MG/DL (70-104); PHOSPHORUS 4.6 MG/DL (2.3-4.5); TOTAL PROTEIN 5.9 G/DL (6.4-8.2)
--- NOTE | 2018-08-18 06:00 | NUR ---
Problems reprioritized. Patient report given, questions answered & plan of care reviewed with Mirna WARNER.
--- NOTE | 2018-08-18 06:00 | NUR ---
Problems reprioritized. Patient report given, questions answered & plan of care reviewed with Mirna WARNER.
--- NOTE | 2018-08-18 06:14 | NUR ---
Patient in room PCU 3025. I have received report from TIMMY Evans and had the opportunity to ask questions and assume patient care.
[2018-08-18] MEDS: lactulose 20gm/30ml cup PO SCH (08:00)
[2018-08-18] MEDS: heparin, porcine 5000 units/ml vial SQ SCH ×2 (08:00→20:00)
[2018-08-18] MEDS: docusate sod 100mg capsule PO SCH ×2 (08:00→20:00)
[2018-08-18] MEDS: carvedilol 6.25mg tablet PO SCH ×2 (08:00→20:00)
[2018-08-18] MEDS: NUT.TX.IMP.RENAL FXN,LAC-REDUC (Nepro) 237 ML VANILLA PO SCH ×3 (08:00→18:00)
[2018-08-18] MEDS: K, MAG and/or Phos replacement - Verify level? MC SCH (08:00)
[2018-08-18] MEDS: lactobacillus rhamnosus 10,000 MMU CELLS/CAPSULE PO SCH ×2 (08:07→20:26)
[2018-08-18] MEDS: pantoprazole 40mg Tablet.DR PO SCH (08:12)
[2018-08-18] MEDS: loratadine 10mg tablet PO SCH (08:12)
--- NOTE | 2018-08-18 08:30 | NUR ---
Pt's IV placed on 08/11 & is due to be changed. Pt requested that IV remain in place & no new IV started. Educated pt on infection control practice re IV site change. Pt still wishes that IV site not be discontinued. Site is free from S&S of infection & IV flushes easily. Will continue to monitor site for changes suggestive of infection.
[2018-08-18] MEDS: insulin Lispro (HumaLOG) vial - multi-dose SQ SCH (09:15)
[2018-08-18] MEDS: CefTRIAXone/D5W-Rocephin 1gm 50 ML IV SCH (13:44)
--- NOTE | 2018-08-18 14:42 | NUR ---
reassessment: Pt PO increased to 75% avg meals past 2 days w/ Nepro ONS. LBM 08/15. Currently contemplating hospice vs other care options per MD note. Will monitor for changes in code status and additional protein needs w/ large fluid losses each time tapped. Rec: 1. continue renal diet 2. Nepro TIDWM 3. wt per rx 4. monitor for changes in code status Addendum: 08/18/18 at [address] Amended: Links added.
--- NOTE | 2018-08-18 18:10 | NUR ---
Received report from TIMMY Bradley. Patient is awake and alert on room air, in no apparent distress. Call light and items of frequent use within reach. Will continue to monitor.
--- NOTE | 2018-08-18 18:30 | NUR ---
Problems reprioritized. Patient report given, questions answered & plan of care reviewed with TIMMY Trujillo.
--- NOTE | 2018-08-18 18:58 | NUR ---
Patient did not have any dinner, and his BG level at 1700 was 126mg/dL. Insulin coverage will not be administered at this time.
[2018-08-18] MEDS: normal saline 1000ml 1,000 ML IV SCH (19:31)
[2018-08-18] MEDS: tamsulosin 0.4mg capsule PO SCH (20:27)
[2018-08-18] MEDS: traZODone 50mg tablet PO SCH (20:27)
[2018-08-18] MEDS: insulin glargine (Lantus) pen - multi-dose SQ SCH (20:35)
[2018-08-19] VITALS (15 sets, daily range): BP systolic 90–111; BP diastolic 49–64
[2018-08-19] MEDS: midodrine tablet 2.5 MG TABLET PO SCH ×4 (00:50→23:57)
[2018-08-19 05:08] LABS: ALANINE AMINOTRANSFERASE 19 U/L (12-78); ALBUMIN 2.3 G/DL (3.4-5.0); ALKALINE PHOSPHATASE 83 IU/L (46-116); ANION GAP 11 (8-16); ASPARTATE AMINO TRANSFERASE 27 U/L (10-37); BASOPHILS % (AUTO) 0 % (0-1); BILIRUBIN,TOTAL 5.7 MG/DL (0.1-1.0); BLOOD UREA NITROGEN 91 MG/DL (7-18); BUN/CREATININE RATIO 33.3 (5.4-32.0); CALCIUM 8.4 MG/DL (8.5-10.1); CHLORIDE 96 MMOL/L (99-107); CREATININE 2.73 MG/DL (0.60-1.10); EOSINOPHILS # (AUTO) 0.3 X10'3 (0-0.9); EOSINOPHILS % (AUTO) 2.3 % (0-6); HEMATOCRIT 29.8 % (42.0-52.0); HEMOGLOBIN 10.4 g/dl (14.0-17.9); LYMPHOCYTES # (AUTO) 0.4 X10'3 (1.1-4.8); LYMPHOCYTES % (AUTO) 3.3 % (21-51); MAGNESIUM 2.4 MG/DL (1.5-2.4); MEAN CORPUSCULAR HEMOGLOBIN 35.6 PG (27.0-31.0); MEAN CORPUSCULAR HGB CONC 34.7 % (33.0-36.5); MEAN CORPUSCULAR VOLUME 102.6 FL (78-98); MEAN PLATELET VOLUME 8.8 FL (7.4-10.4); MONOCYTES # (AUTO) 1.2 X10'3 (0-0.9); MONOCYTES % (AUTO) 10.5 % (2-12); NEUTROPHILS # (AUTO) 9.3 X10'3 (1.8-7.7); NEUTROPHILS % (AUTO) 83.9 % (42-75); PLATELET COUNT 83 X10'3 (140-440); POTASSIUM 4.1 MMOL/L (3.5-5.1); RED BLOOD COUNT 2.91 X10'6 (4.70-6.10); RED CELL DISTRIBUTION WIDTH 14.4 % (11.5-14.5); SODIUM 130 MMOL/L (135-145); TOTAL CARBON DIOXIDE 22.8 MMOL/L (24-32); WHITE BLOOD COUNT 11.2 X10'3 (4.5-11.0); eGFR 24 ML/MIN
[2018-08-19 05:09] LABS: GLUCOSE 114 MG/DL (70-104); PHOSPHORUS 5.1 MG/DL (2.3-4.5); TOTAL PROTEIN 6.1 G/DL (6.4-8.2)
[2018-08-19 05:10] LABS: ALBUMIN/GLOBULIN RATIO 0.6 (1.1-1.5)
--- NOTE | 2018-08-19 06:18 | NUR ---
Problems reprioritized. Patient report given, questions answered & plan of care reviewed with TIMMY Bradley.
--- NOTE | 2018-08-19 06:20 | NUR ---
Patient in room PCU 3025. I have received report from TIMMY Trujillo and had the opportunity to ask questions and assume patient care.
[2018-08-19] MEDS: pantoprazole 40mg Tablet.DR PO SCH (07:29)
[2018-08-19] MEDS: loratadine 10mg tablet PO SCH (07:29)
[2018-08-19] MEDS: lactobacillus rhamnosus 10,000 MMU CELLS/CAPSULE PO SCH ×2 (07:29→19:08)
[2018-08-19] MEDS: CefTRIAXone/D5W-Rocephin 1gm 50 ML IV SCH (07:30)
[2018-08-19] MEDS: carvedilol 6.25mg tablet PO SCH ×2 (07:33→19:00)
[2018-08-19] MEDS: K, MAG and/or Phos replacement - Verify level? MC SCH (08:00)
[2018-08-19] MEDS: heparin, porcine 5000 units/ml vial SQ SCH ×2 (08:00→19:07)
[2018-08-19] MEDS: NUT.TX.IMP.RENAL FXN,LAC-REDUC (Nepro) 237 ML VANILLA PO SCH ×3 (08:00→19:00)
[2018-08-19] MEDS: docusate sod 100mg capsule PO SCH ×2 (08:00→19:07)
[2018-08-19] MEDS: lactulose 20gm/30ml cup PO SCH (08:00)
[2018-08-19] MEDS: morphine 4 MG/ML inj SYRINge IV PRN ×2 (12:00→19:08)
--- NOTE | 2018-08-19 13:20 | NUR ---
Pt out of room for drain placement.
[2018-08-19] MEDS ORDERED: LIDOcaine 1%/PF 5ML 10 MG/ML VIAL ONE (13:37)
--- NOTE | 2018-08-19 14:20 | NUR ---
Pt returned to room from angio. Aspire drain placed on L abdomen. Extra drain bags and instructions given to pt's daughter by angio RNs. Patient stable, resting in bed in no acute distress. Post-procedure vital signs begun, will continue to monitor. Addendum: 08/19/18 at 1548 by Bonnie Rose RN TIMMY Salazar reported that 2300mL fluid drained from patient
[2018-08-19] MEDS: normal saline 1000ml 1,000 ML IV SCH (15:31)
--- NOTE | 2018-08-19 18:30 | NUR ---
Patient in room PCU 3025. I have received report from Mirna WARNER and had the opportunity to ask questions and assume patient care.
--- NOTE | 2018-08-19 18:30 | NUR ---
Problems reprioritized. Patient report given, questions answered & plan of care reviewed with TIMMY Lee.
[2018-08-19] MEDS: traZODone 50mg tablet PO SCH (21:21)
[2018-08-19] MEDS: tamsulosin 0.4mg capsule PO SCH (21:21)
[2018-08-19] MEDS: insulin glargine (Lantus) pen - multi-dose SQ SCH (21:25)
[2018-08-20] MEDS: oxyCODONE IR 5mg (immed. release) tablet PO PRN ×2 (01:04→08:24)
[2018-08-20 02:10] VITALS: BP 113/61
[2018-08-20 06:00] VITALS: BP 102/55
[2018-08-20 06:25] LABS: BASOPHILS % (AUTO) 0.4 % (0-1); EOSINOPHILS # (AUTO) 0.2 X10'3 (0-0.9); EOSINOPHILS % (AUTO) 2.3 % (0-6); HEMATOCRIT 30.1 % (42.0-52.0); HEMOGLOBIN 10.1 g/dl (14.0-17.9); LYMPHOCYTES # (AUTO) 0.5 X10'3 (1.1-4.8); LYMPHOCYTES % (AUTO) 5.1 % (21-51); MEAN CORPUSCULAR HEMOGLOBIN 34.7 PG (27.0-31.0); MEAN CORPUSCULAR HGB CONC 33.5 % (33.0-36.5); MEAN CORPUSCULAR VOLUME 103.7 FL (78-98); MEAN PLATELET VOLUME 8.4 FL (7.4-10.4); MONOCYTES # (AUTO) 1.1 X10'3 (0-0.9); MONOCYTES % (AUTO) 12.2 % (2-12); NEUTROPHILS # (AUTO) 7.2 X10'3 (1.8-7.7); PLATELET COUNT 86 X10'3 (140-440); RED CELL DISTRIBUTION WIDTH 14.6 % (11.5-14.5)
--- NOTE | 2018-08-20 06:27 | NUR ---
Problems reprioritized. Patient report given, questions answered & plan of care reviewed with Emelyn WARNER.
[2018-08-20 06:31] LABS: ALANINE AMINOTRANSFERASE 17 U/L (12-78); ALBUMIN/GLOBULIN RATIO 0.5 (1.1-1.5); ALKALINE PHOSPHATASE 92 IU/L (46-116); ANION GAP 10 (8-16); ASPARTATE AMINO TRANSFERASE 26 U/L (10-37); BILIRUBIN,TOTAL 3.2 MG/DL (0.1-1.0); BLOOD UREA NITROGEN 92 MG/DL (7-18); BUN/CREATININE RATIO 41.3 (5.4-32.0); CALCIUM 8.1 MG/DL (8.5-10.1); CHLORIDE 98 MMOL/L (99-107); CREATININE 2.23 MG/DL (0.60-1.10); MAGNESIUM 2.5 MG/DL (1.5-2.4); PHOSPHORUS 4.3 MG/DL (2.3-4.5); SODIUM 131 MMOL/L (135-145); TOTAL CARBON DIOXIDE 23.4 MMOL/L (24-32); TOTAL PROTEIN 5.9 G/DL (6.4-8.2); eGFR 30 ML/MIN
[2018-08-20 06:32] LABS: GLUCOSE 177 MG/DL (70-104)
--- NOTE | 2018-08-20 06:37 | NUR ---
Patient in room PCU 3025. I have received report from Giulia WARNER. and had the opportunity to ask questions and assume patient care. Pt awake and alert at time of transfer. Pt states he is in pain because he can not drain his peritoneal catheter and is waiting for his daughter to bring the necessary supplies.
[2018-08-20] MEDS: NUT.TX.IMP.RENAL FXN,LAC-REDUC (Nepro) 237 ML VANILLA PO SCH (08:00)
[2018-08-20] MEDS: heparin, porcine 5000 units/ml vial SQ SCH (08:00)
[2018-08-20] MEDS: docusate sod 100mg capsule PO SCH (08:00)
[2018-08-20] MEDS: lactulose 20gm/30ml cup PO SCH (08:00)
[2018-08-20] MEDS: lactobacillus rhamnosus 10,000 MMU CELLS/CAPSULE PO SCH (08:24)
[2018-08-20] MEDS: pantoprazole 40mg Tablet.DR PO SCH (08:25)
[2018-08-20] MEDS: loratadine 10mg tablet PO SCH (08:26)
[2018-08-20] MEDS: carvedilol 6.25mg tablet PO SCH (08:26)
[2018-08-20] MEDS: midodrine tablet 2.5 MG TABLET PO SCH (08:27)
[2018-08-20] MEDS: CefTRIAXone/D5W-Rocephin 1gm 50 ML IV SCH (08:30)
[2018-08-20] MEDS: insulin Lispro (HumaLOG) vial - multi-dose SQ SCH (09:28)
[2018-08-20] MEDS: morphine 4 MG/ML inj SYRINge IV PRN ×2 (10:50→10:54)
[2018-08-20 11:00] VITALS: BP 89/60
--- NOTE | 2018-08-20 14:33 | NUR ---
Removed pt.s monitor and IV, pt tolerated well. Pt going home and Soriano was kept in place. Pt accompanied by daughter and belongings sent with pt. Pt wheeled down to private vehicle via nurses aide. Pt in stable condition at time of transfer. Pt no longer on the floor.
== END 2018-08-20 14:34 | disposition hospice, inpatient (51) | DRG 871 ==
LOC: ER 14:26 → ED HOLD 20:15 → EDBEDREQSVC 23:33 → EDBEDREQTM 23:33 → PCU 3S 08-11 00:15
PROVIDERS: ADMIT Internal Medicine Critical Care Medicine; ATTEND Internal Medicine Critical Care Medicine
PROC: 0W9G3ZX Drainage of Peritoneal Cavity, Percutaneous Approach, Diagnostic (ICD-10-PCS; principal; 2018-08-13)
PROC: 0WHG33Z Insertion of Infusion Device into Peritoneal Cavity, Percutaneous Approach (ICD-10-PCS; 2018-08-19)
DX: A41.53 Sepsis due to Serratia (principal); K65.9 Peritonitis, unspecified; C22.9 Malignant neoplasm of liver, not specified as primary or secondary; E87.2 Acidosis; I13.0 Hypertensive heart and chronic kidney disease with heart failure and stage 1 through stage 4 chronic kidney disease, or unspecified chronic kidney disease; I50.22 Chronic systolic (congestive) heart failure; N17.9 Acute kidney failure, unspecified; N18.4 Chronic kidney disease, stage 4 (severe); R18.8 Other ascites; I95.9 Hypotension, unspecified; K74.60 Unspecified cirrhosis of liver; B19.20 Unspecified viral hepatitis C without hepatic coma; E11.22 Type 2 diabetes mellitus with diabetic chronic kidney disease; I25.10 Atherosclerotic heart disease of native coronary artery without angina pectoris; K59.00 Constipation, unspecified; S90.822A Blister (nonthermal), left foot, initial encounter; I25.2 Old myocardial infarction; Z90.5 Acquired absence of kidney; Z95.1 Presence of aortocoronary bypass graft; Z95.0 Presence of cardiac pacemaker; Z88.8 Allergy status to other drugs, medicaments and biological substances; Z79.899 Other long term (current) drug therapy; Z79.84 Long term (current) use of oral hypoglycemic drugs; Z85.528 Personal history of other malignant neoplasm of kidney
CPT/HCPCS: 32550; 36415; 49083; 71045; 76700; 76942; 80053; 81001; 82042; 82140; 82150; 82948; 83036; 83605; 83690; 83735; 84100; 84157; 84484; 85025; 85610; 87040; 87070; 87075; 87077; 87186; 88108; 88305; 89051; 93005; 96361; 96365; 96367; 96368; 96375; 99291; G0378; J0696; J0780; J1644; J1815; J2001; J2270; J2405; J2543; J3370; J7030; P9045; P9047